=== PATIENT | female | born 1975 | race Caucasian/White ===

== ENCOUNTER 2019-05-08 10:46 | Inpatient (IN) | payer OTHER ==
[2019-05-08] MEDS ORDERED: HEPARIN NA (PORCINE) 5,000 UNITS/ML 1ML VIAL ONE (11:53)
[2019-05-08] MEDS ORDERED: THROMBIN (BOVINE) 5,000 UNIT VIAL TP ONE ×3 (11:53→18:49)
[2019-05-08] MEDS ORDERED: VANCOMYCIN 1,000 MG VIAL (RESTRICTED TO ID ONLY) IVPB ONE ×2 (17:12→18:17)
[2019-05-08] MEDS ORDERED: GELATIN, ABSORBABLE 12-7MM EACH SPONGE TP ONE ×2 (17:13→18:49)
[2019-05-08] MEDS ORDERED: DEXTROSE 50%-WATER 25 GM/50 ML DISP.SYRIN ONE (17:40)
[2019-05-08] MEDS ORDERED: CLINDAMYCIN 600 MG PREMIX BAG IVPB ONE (18:50)
[2019-05-08] MEDS ORDERED: TRANEXAMIC ACID 1000 MG/10 ML VIAL ONE (20:02)
--- NOTE | 2019-05-08 20:45 | PN ---
Progress Note (short form) - Note Progress Note: 43F s/p C3-C4, C4-C5 discectomies; C4 corpectomy; C3, C5 partial corpectomies; C3-C5 anterior cervical decompression and instrumented fusion POD #0. -Admit to ICU x 24 hrs. for airway observation. -Maintain head of bed 30-45 degrees. -Pain medication: per anaesthesia team; NO NSAID's. -DVT PPx: -Mechanical only: BILL's, SCD's. -Post-op Ancef x 2 doses. -Decadron 10mg IV x 1 12/26/2018 at 7am. -f/u AM labs. -Incentive spirometry. -PT/OT/Rehab, OOB. -PWB B/L UE: -No heavy lifting, bending or twisting (5lbs max). -WBAT B/L LE. -d/c Shine catheter at midnight; f/u TOV (8 hours max). -Keep dressing clean & dry. -Advance diet as tolerated. -B/L UE & LE NV checks. -Care per ICU & primary medical hospitalist Dr. Oral Powell. -Discharge planning: f/u [facility] [place] office Wednesday05/19/2018; call for appointment; . Mykel Hendrix MD (Orthopaedic Surgery).
[2019-05-08] MEDS ORDERED: PROMETHAZINE HCL 25 MG/1 ML VIAL IVPUSH PRN (20:49)
[2019-05-08] MEDS ORDERED: ONDANSETRON 4 MG/2 ML VIAL IVPUSH PRN ×2 (20:49→20:51)
--- NOTE | 2019-05-08 20:50 | OP ---
Operative Note - Note: Operative Date: 05/08/19 Pre-Operative Diagnosis: 1. C3-C4, C4-C5 intervertebral disc disorders with radiculopathy. 2. C3-C5 spinal stenosis with myelopathy and neurogenic claudication. Severity of illness: 4 Operation: 1. C3-C4, C4-C5 discectomies. 2. C4 corpectomy. 3. C3, C5 partial corpectomies. 4. C3-C5 anterior cervical decompression and instrumented fusion. 5. Bone autograft. 6. Bone allograft Implants: Cage: Choice Spine [place] 26mm. Plate: Precision Spine Slimplicity 32mm. Screws: 4 x 4x12mm Post-Operative Diagnosis: Same as Pre-op Surgeon: Mykel Hendrix Brand Leader: Tay Hendrix Anesthesiologist/BRIM PLATER: Lj Anderson Anesthesia: General Specimens Removed: C3-C4, C4-C5 discs Estimated Blood Loss (mls): 100 Drains & Tubes with Location: 1 x deep HemoVac Fluid Volume Replaced (mls): 1,300 (Crystalloid) Operative Report Dictated: Yes
[2019-05-08] MEDS ORDERED: oxyCODONE HCL 5 MG TABLET PO PRN (20:51)
[2019-05-08] MEDS ORDERED: INSULIN ASPART 25 UNIT SQ SCH (21:00)
[2019-05-08] MEDS ORDERED: LACTATED RINGERS SOLUTION 1,000 ML IV SCH ×2 (21:00)
--- NOTE | 2019-05-08 21:41 | HP ---
Admitting History and Physical - Admission Chief Complaint: C3-C4, C4-C5 intervertebral disc disorders with radiculopathy, spinal stenosis History Source: Medical Record Limitations to Obtaining History: Clinical Condition (sedated) - Past Medical History Pulmonary: Yes: Asthma, Bronchitis ...LMP: 04/23/19 Endocrine: Yes: Diabetes Mellitus - Smoking History Smoking history: Never smoked - Alcohol/Substance Use Hx Alcohol Use: No Home Medications - Allergies Allergies/Adverse Reactions: Allergies Allergy/AdvReac Type Severity Reaction Status Date / Time Penicillins Allergy Unknown Verified 05/05/19 08:57 - Home Medications Home Medications: Ambulatory Orders Cyanocobalamin [Vitamin B12 -] 1,000 mcg PO DAILY 05/05/19 Ferrous Sulfate [Iron] 325 mg PO DAILY 05/05/19 Insulin Aspart [Novolog] 25 unit SQ AC 05/05/19 Insulin Degludec [Tresiba] 60 unit SQ BID 05/05/19 Rosuvastatin Calcium [Crestor] 20 mg PO HS 05/05/19 Review of Systems Unable to obtain ROS, reason: sedated. unable to assess Physical Examination Vital Signs: Vital Signs Temperature 97. F L 05/08/19 20:42 Pulse Rate 100 H 05/08/19 21:10 Respiratory Rate 14 05/08/19 21:10 Blood Pressure 170/85 05/08/19 21:10 O2 Sat by Pulse Oximetry (%) 100 05/08/19 21:10 Constitutional: Yes: Well Nourished, No Distress, Obese Eyes: Yes: WNL HENT: Yes: WNL Neck: Yes: WNL Cardiovascular: Yes: WNL, Tachycardia Respiratory: Yes: WNL Gastrointestinal: Yes: WNL Renal/: Yes: WNL Musculoskeletal: Yes: Back Pain Extremities: Yes: WNL Edema: No Integumentary: Yes: WNL Wound/Incision: Yes: Clean/Dry, Well Approximated Neurological: Yes: WNL ...Motor Strength: WNL Psychiatric: Yes: WNL Assessment/Plan C3-C4, C4-C5 intervertebral disc disorders with radiculopathy. S/P C3-C4, C4-C5 discectomies, C4 corpectomy, C3, C5 partial corpectomies, C3- C5 anterior cervical decompression and instrumented fusion, Bone autograft, Bone allograft. pain management incentive spirometry. -HTN: change LR to 1/2 NS -GI, DVT prophylaxis -h/o asthma: cont bronchodilators. keep O2>92% -oral diet when more awake -menendez catheter to be removed at midnight for TOV. -Pt is type I diabetic: please make sure she is on long acting insulin on top of RISS -PT/OT/OOB as tolerated -AM labs -will f/u
[2019-05-08] MEDS: SODIUM CHLORIDE 0.45% 1,000 ML IV SCH (21:50)
[2019-05-08] MEDS ORDERED: INSULIN DEGLUDEC 60 UNIT SQ SCH (22:00)
--- NOTE | 2019-05-08 22:39 | CONSULT ---
Consultation: CONSULT SERVICE: ICU Resident HISTORY OF PRESENT ILLNESS: 43yo F with h/o of T1DM, mild intermittent asthma who presents today after cervical surgical procedure. Pt has reported 100cc EBL with uneventful surgery. Pt was noted to have taken her full dose insulin prior to surgery and received D50 x1 due to hypoglycemia on POC glucometry (69). Pt post-operatively had tachycardia and hypertension, however she has been in pain. Otherwise pt has no other complaints and wishes for us to contact her family and update them. REVIEW OF SYSTEMS: As per HPI PHYSICAL EXAMINATION Vital Signs 05/08/19 05/08/19 05/08/19 11:18 11:19 20:42 Temperature 98.1 F 97. F L Pulse Rate 89 100 H Respiratory 18 18 Rate Blood Pressure 115/75 161/80 O2 Sat by Pulse 100 96 Oximetry (%) 05/08/19 05/08/19 05/08/19 20:55 21:10 21:25 Temperature Pulse Rate 94 H 100 H 102 H Respiratory 16 14 16 Rate Blood Pressure 158/78 170/85 179/83 H O2 Sat by Pulse 98 100 99 Oximetry (%) 05/08/19 05/08/19 21:40 22:00 Temperature 98.4 F Pulse Rate 96 H 106 H Respiratory 14 14 Rate Blood Pressure 176/90 H 161/83 O2 Sat by Pulse 99 100 Oximetry (%) GENERAL: NAD, Awake, alert, and fully oriented HEENT: NC/AT, EOMI, RHONDA, MMM, no edema of soft tissues noted NECK: No JVD, hemovac drain noted from R-side of neck, surgical bandage intact without any notable bleeding. LUNGS: CTA bilaterally. No wheezes, and no crackles. No accessory muscle use. Incentive spirometer at bedside HEART: Tachycardic at 92bpm with regular rhythm, normal S1 and S2 without murmur ABDOMEN: Soft, NT/ND, hypoactive bowel sounds, no guarding. EXTREMITIES: 2+ distal pulses throughout, warm, well-perfused. No calf tenderness. No peripheral edema. NEUROLOGICAL: datapower developer II-XII intact. Normal speech. Strength 5/5 in upper and lower extremities, sensation intact throughout. PSYCHIATRIC: Cooperative. Good eye contact. Appropriate mood and affect. SKIN: Warm, dry, no rashes Laboratory Results 05/08/19 05/08/19 05/08/19 11:01 11:01 11:37 POC Glucometer 122 Serum , Qual Negative Blood Type O POSITIVE Antibody Screen Negative 05/08/19 05/08/19 17:37 21:16 POC Glucometer 69 159 Serum , Qual Blood Type Antibody Screen Active Medications Generic Name Dose Route Start Last Admin Trade Name Freq PRN Reason Stop Dose Admin Cyanocobalamin 1,000 mcg 05/09/19 10:00 Vitamin B12 - PO DAILY [facility] Fentanyl 50 mcg 05/08/19 20:49 05/08/19 21:25 Sublimaze Injection - IVPUSH 05/09/19 02:00 50 mcg [id number] PRN Administration PAIN-PACU ORDER X 4 DOSES ONLY Ferrous Sulfate 325 mg 05/09/19 10:00 Feosol - PO DAILY [facility] Clindamycin Phosphate 600 mg in 50 mls @ 100 mls/hr 05/09/19 00:30 Cleocin 600 Mg Premix Ivpb - IVPB 05/09/19 15:29 Q6H-IV HARJINDER Protocol Sodium Chloride 1,000 mls @ 75 mls/hr 05/08/19 22:30 05/08/19 21:50 1/2 Normal Saline IV 0 mls ASDIR [facility] Administration Insulin Detemir 14 units 05/09/19 22:00 Levemir Vial SQ [facility] Ondansetron HCl 4 mg 05/08/19 20:51 Zofran Injection IVPUSH Q6H PRN NAUSEA AND/OR VOMITING Oxycodone HCl 5 mg 05/08/19 20:51 Roxicodone - PO Q4H PRN PAIN LEVEL 1-5 Oxycodone HCl 10 mg 05/08/19 20:51 Roxicodone - PO Q4H PRN PAIN LEVEL 6-10 Promethazine HCl 12.5 mg 05/08/19 20:49 Phenergan Injection - IVPUSH Q6H PRN NAUSEA-FOR RESCUE AFTER 15 MIN Rosuvastatin Calcium 20 mg 05/08/19 22:00 Crestor - PO [facility] ASSESSMENT/PLAN: C3-C4, C4-C5 intervertebral disc disorders with radiculopathy S/p C-spine intervention T1DM Hypertension HLD Mild intermittent asthma --HOB elevated 30-45 degrees --Pain control with oral opiates noted started by anesthesia/surgery --Avoid NSAIDs due to post-operative bleeding --Shine can be removed tomorrow AM with TOV period --PT ordered as pt tolerates --Insulin replacement for long-acting basal insulin given pt's medications nonformulary --TDI 50U and pt has been taking BID dosing of her home insulin [1] --Levemir 12U BID (starting now) --> 50% of TDI divided in 2 doses given T1DM --Will hold off ISS for now while pt is in post-operative period and can reinitiate if pt tolerates food --Pt hypertensive likely 2/2 to pain. Once pain controlled will reassess and if necessary can start an oral low dose ACEi given other comorbid conditions --Continue Albuterol nebs PRN for any wheezing or SOB --Continue Crestor 20mg HS PO FEN: Fluids: 1/2NS@75cc/hr for minimal effect on BP Electrolyte abnormalities: AM labs Nutrition: Advanced to soft diabetic by surgery PPX: DVT - SCDs only GI - Not indicated Dispo: Monitor for airway in ICU overnight References: [1] https://www.aafp.org/afp/1998/1115/p2343.html Visit type - Emergency Visit Emergency Visit: No - New Patient This patient is new to me today: Yes Date on this admission: 05/09/19 - Critical Care Critical Care patient: Yes Total Critical Care Time (in minutes): 35 Critical Care Statement: The care of this patient involved high complexity decision making to prevent further life threatening deterioration of the patient 's condition and/or to evaluate & treat vital organ system(s) failure or risk of failure.
[2019-05-08] MEDS ORDERED: INSULIN (LEVEMIR) 100 UNITS/ML UNITS SQ SCH ×2 (22:40→23:00)
[2019-05-08] MEDS: ROSUVASTATIN CA 20 MG TABLET (FP) PO SCH (23:48)
[2019-05-09] MEDS: CLINDAMYCIN 600MG PREMIX IVPB 600 MG/50 ML BAG IVPB SCH ×4 (00:11→15:09)
[2019-05-09] MEDS: oxyCODONE HCL 5 MG TABLET PO PRN ×3 (01:12→15:24)
[2019-05-09] MEDS: INSULIN SLIDING SCALE (NOVOLOG) 1 VIAL SQ SCH ×4 (05:59→21:26)
[2019-05-09 06:12] LABS: PLATELET COUNT 233 K/MM3 (134-434)
[2019-05-09 06:30] LABS: HEMATOCRIT 33.4 % (32.4-45.2); HEMOGLOBIN 11.4 GM/dL (10.7-15.3); MCH 27.9 pg (25.7-33.7); MEAN PLT VOLUME 7.5 fl (7.5-11.1); RBC 4.08 M/mm3 (3.60-5.2); RDW 13.5 % (11.6-15.6); WHITE BLOOD COUNT 9.6 K/mm3 (4.0-10.0)
[2019-05-09 06:41] LABS: BLOOD UREA NITROGEN 7.4 mg/dL (7-18); CALCIUM 8.2 mg/dL (8.5-10.1); CREATININE 0.6 mg/dL (0.55-1.3); MAGNESIUM 1.8 mg/dL (1.8-2.4); POTASSIUM 3.9 mmol/L (3.5-5.1)
--- NOTE | 2019-05-09 08:29 | PN ---
Physical Exam: SUBJECTIVE: Patient seen and examined at bedside this morning. Patient is POD # 1 s/p C3-C4, C4-C5 discectomies, C4 corpectomy, C3, C5 partial corpectomies, C3- C5 anterior cervical decompression and instrumented fusion. She denies acute complaints today. States that her neck pain is currently 10/10 intensity. She endorses some dysphagia however denies difficulty breathing, shortness of breath , or cough. She has not yet passed bowel movement, or flatus. Patient denies subjective fevers, chills, shortness of breath, chest pain, palpitations, abdominal pain, nausea, vomiting. OBJECTIVE: Vital Signs Period Temp Pulse Resp BP Sys/Lion Pulse Ox Last 24 Hr 97. F-98.4 F 89-120 14-20 115-179/60-90 96-100 GENERAL: The patient is awake, alert, and fully oriented, in no acute distress. HEAD: Normocephalic, atraumatic EYES: PERRL, extraocular movements intact, sclera anicteric, conjunctiva clear. ENT: Oropharynx clear without exudates, moist mucous membranes. NECK: Supple, without lymphadenopathy. Negative stridor auscultated bilaterally. LUNGS: Good inspiratory effort and air entry bilaterally. No wheezes, no crackles auscultated. No accessory muscle use. HEART: Regular rate and rhythm, S1, S2 without murmur, rub or gallop. ABDOMEN: Obese abdomen. Soft, nondistended, nontender to light and deep palpation x4 quadrants. Normoactive bowel sounds. No guarding, no rebound tenderness. EXTREMITIES: 2+ radial, dorsalis pedis pulses bilaterally. Warm, well-perfused. No lower extremity edema bilaterally. NEUROLOGICAL: Cranial nerves II through XII grossly intact. Normal speech. No gross focal deficits. PSYCH: Normal mood, normal affect upon my encounter. SKIN: Warm, dry. Right sided drain at neck noted with sanguinous discharge. Laboratory Results - last 24 hr 05/08/19 05/08/19 05/08/19 11:01 11:01 11:37 WBC RBC Hgb Hct MCV MCH MCHC RDW Plt Count MPV Sodium Potassium Chloride Carbon Dioxide Anion Gap BUN Creatinine Est GFR (CKD-EPI)AfAm Est GFR (CKD-EPI)NonAf POC Glucometer 122 Random Glucose Calcium Magnesium Serum , Qual Negative Blood Type O POSITIVE Antibody Screen Negative 05/08/19 05/08/19 05/09/19 17:37 21:16 05:39 WBC RBC Hgb Hct MCV MCH MCHC RDW Plt Count MPV Sodium Potassium Chloride Carbon Dioxide Anion Gap BUN Creatinine Est GFR (CKD-EPI)AfAm Est GFR (CKD-EPI)NonAf POC Glucometer 69 159 192 Random Glucose Calcium Magnesium Serum , Qual Blood Type Antibody Screen 05/09/19 05/09/19 05:45 05:45 WBC 9.6 RBC 4.08 Hgb 11.4 Hct 33.4 MCV 82.0 MCH 27.9 MCHC 34.0 RDW 13.5 Plt Count 233 MPV 7.5 Sodium 137 Potassium 3.9 Chloride 104 Carbon Dioxide 25 Anion Gap 8 BUN 7.4 Creatinine 0.6 Est GFR (CKD-EPI)AfAm 128.48 Est GFR (CKD-EPI)NonAf 110.86 POC Glucometer Random Glucose 199 H Calcium 8.2 L Magnesium 1.8 Serum , Qual Blood Type Antibody Screen Active Medications Generic Name Dose Route Start Last Admin Trade Name Freq PRN Reason Stop Dose Admin Cyanocobalamin 1,000 mcg 05/09/19 10:00 Vitamin B12 - PO DAILY [facility] Ferrous Sulfate 325 mg 05/09/19 10:00 Feosol - PO DAILY [facility] Clindamycin Phosphate 600 mg in 50 mls @ 100 mls/hr 05/09/19 00:30 05/09/19 04:00 Cleocin 600 Mg Premix Ivpb - IVPB 05/09/19 15:29 100 mls/hr Q6H-IV [facility] Administration Protocol Sodium Chloride 1,000 mls @ 75 mls/hr 05/08/19 22:30 05/08/19 21:50 1/2 Normal Saline IV 0 mls ASDIR [facility] Administration Insulin Aspart 1 vial 05/09/19 07:00 05/09/19 05:59 Novolog Vial Sliding Scale - SQ 2 units ACHS HAR[facility]ER Administration Protocol Insulin Aspart 20 units 05/09/19 12:00 Novolog SQ TIDAC [facility] Insulin Detemir 12 units 05/08/19 23:00 05/08/19 23:48 Levemir Vial SQ 12 units BID@0700,2200 [facility] Administration Ondansetron HCl 4 mg 05/08/19 20:51 Zofran Injection IVPUSH Q6H PRN NAUSEA AND/OR VOMITING Oxycodone HCl 5 mg 05/08/19 20:51 Roxicodone - PO Q4H PRN PAIN LEVEL 1-5 Oxycodone HCl 10 mg 05/08/19 20:51 05/09/19 05:50 Roxicodone - PO 10 mg Q4H PRN Administration PAIN LEVEL 6-10 Promethazine HCl 12.5 mg 05/08/19 20:49 Phenergan Injection - IVPUSH Q6H PRN NAUSEA-FOR RESCUE AFTER 15 MIN Rosuvastatin Calcium 20 mg 05/08/19 22:00 05/08/19 23:48 Crestor - PO 20 mg HS [facility] Administration ASSESSMENT/PLAN: Patient is a 43 year old female with history of type 1 diabetes mellitus, hyperlipidemia, admitted to ICU s/p C3-C4, C4-C5 discectomies, C4 corpectomy, C3 , C5 partial corpectomies, C3-C5 anterior cervical decompression and instrumented fusion Neurologic -Patient is awake, alert, oriented. No acute distress. -Monitor for signs of mental status change. Cardiac History of hyperlipidemia -Rosuvastatin 20mg PO HS Pulmonary -Patient is saturating well on nasal canula. No stridor auscultated bilaterally -Trial of humidified oxygen -Monitor of signs of respiratory distress. Low threshold for further imaging studies. Endocrine History of Type 1 Diabetes -Holding home insulin regimen until patient is tolerating diet. Blood glucose today has been less than 200mg/dL with only 2 units Insulin Novolog administered. -Insulin sliding scale ACHS -Fingerstick blood glucose monitoring ACHS Musculoskeletal -Patient is POD #1 s/p C3-C4, C4-C5 discectomies, C4 corpectomy, C3, C5 partial corpectomies, C3-C5 anterior cervical decompression and instrumented fusion -Acetaminophen 650mg PO Q6 hours for pain 1-3 -Oxycodone 5mg PO Q4H PRN for pain 4-6 -Oxycodone 10mg PO Q4H PRN for pain 6- 10 Infectious disease -Patient received Clindamycin 600mg IV Q6H postoperatively FEN -IV 1/2 normal saline at 75mL/ hour, until patient fully tolerating oral intake -Within normal limits. Follow CMP, replete as necessary. -Soft, diabetic modified diet Prophylaxis -SCDs bilateral lower extremities per orthopedic surgery Disposition -Continue care in ICU Visit type - Emergency Visit Emergency Visit: Yes ED Registration Date: 05/08/19 Care time: The patient presented to the Emergency Department on the above date and was hospitalized for further evaluation of their emergent condition. - New Patient This patient is new to me today: Yes Date on this admission: 05/09/19 - Critical Care Critical Care patient: Yes Total Critical Care Time (in minutes): 35 Critical Care Statement: The care of this patient involved high complexity decision making to prevent further life threatening deterioration of the patient 's condition and/or to evaluate & treat vital organ system(s) failure or risk of failure. - Discharge Referral Referred to [facility] Med P.C.: No
[2019-05-09] MEDS ORDERED: ACETAMINOPHEN 325 MG TABLET (FP) PO ONE (08:30)
[2019-05-09] MEDS ORDERED: PNEUMOC 13-VAL CONJ-DIP CRM/PF 0.5 ML DISP.SYRIN IM ONE (09:46)
[2019-05-09] MEDS: SODIUM CHLORIDE 0.45% 1,000 ML IV SCH ×2 (09:48→22:30)
[2019-05-09] MEDS ORDERED: PNEUMOCOCCAL 23 VACCINE 0.5 ML VIAL IM ONE (10:15)
--- NOTE | 2019-05-09 10:33 | OP ---
DATE OF OPERATION: 05/08/2019 SURGEON: Mykel Hendrix MD MACHINE CLERICAL VERIFIER: Tay Hendrix MD PREOPERATIVE DIAGNOSIS: C4-5 disc prolapse with sequestration, disc migration behind the body of C4 with spondylogenic myelopathy. 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 OPERATION PERFORMED: 1. Discectomy C3-4 and discectomy C4-5. 2. Corpectomy C4. 3. Partial corpectomy C3 and partial corpectomy C5. 4. Insertion of interbody cage with autologous bone graft, C3 to C5. 5. Anterior arthrodesis C3 to C5. 6. Anterior plating C3 to C5. 7. Autologous bone graft harvested from the same wound. ANESTHESIA: General. ANTIBIOTICS GIVEN: Vancomycin 1 g, clindamycin 900 mg (PENICILLIN allergy), Decadron 10 mg given preoperatively. OPERATION IN DETAIL: Patient correctly identified, brought into the operating room, placed supine on the operating room table under general anesthesia. Neuromonitoring baseline readings were taken. Patient was then positioned with a bolster placed behind the scapulae, and the neck extended comfortably. The skin was prepped, draped in a routine manner with Betadine scrub solution, wiped with alcohol, DuraPrep applied. Shoulders were taped down inferiorly as were the breasts. A window drape applied. To repeat, neuromonitoring revealed no problems with any change in neuromonitoring levels. An incision was made just above the lines of Liliana at the root of the head just above the cricothyroid interval. Because of her obesity, this was difficult because of the thick neck configuration. A self-retainer was placed in the subcutaneous layer. The tissues were gently lifted, and the dissection was taken through the subcutaneous fat down to the level of the investing layer of fascia. This was then opened using a Metzenbaum scissors and appropriately dissected out. Hemostasis was achieved with ligating small anterior jugular veins. The dissection was taken laterally to the strap muscles, and with finger dissection and palpation, the anterior vertebral bodies were encountered. An Army-Slater-[place] retractor was placed deep to the esophagus to hold this out of harms way on the left hand side, and the vessels retracted with a Cloward retractor laterally. Lateral fluoroscopic x-ray confirmed the correct positioning of the disc as the needle was placed in the C4-5 disc. Unipolar Bovie helped diathermize and stop all bleeding on the anterior vertebral bodies. The annulus of the C3-4 and 4-5 discs were then transected along the attachment of the annulus to the bone of the anterior aspect of each disc. Under the light microscope, the disc material was retrieved, sent to the lab for confirmation. This left an empty vertebral body at C4-5. Using a linnea-tipped Midas nettie, the end-plate of the disc of the bony bed of C3 and the end-plate of C5 were flattened for the corporate receptionist of the cage ultimately. Using the Matchstick nettie, 2 gutters were cut into the lateral side of the bone bed to bring about easy access to the bone. The bone was rongeured out using a Leksell rongeur more than enough to fill the cage that was proposed. Once the bone had been resected, a 40-mm linnea-tipped nettie was utilized to open up the lateral duong slightly and also nettie down to the actual posterior cortex of the vertebral body. Using 1, 2, and 3 Kerrison upcuts, the entire bone/posterior longitudinal ligament complex was resected. The extruded disc behind the vertebral body was readily seen indicating the correct indications for the surgical intervention, namely that of a corpectomy as opposed to a discectomy and fusion. This enabled us to free the cord completely. Once this had been performed, neuromonitoring reports by the neurology team revealed complete marked improvement of motor-evoked potentials to the biceps, that is the C5 and C6 nerve roots. Appropriately, that is on both sides. No SSEP changes or other motor-evoked changes noted. Once this had been achieved, an appropriate Leiter cage measuring 26 mm was placed into the interbody space only once the 2 bony components were distracted using a [place] distractor. Then, 14-mm pins were placed into the vertebral bodies at C3 and C5. The distraction enabled the seating of the cage to be gently tapped into position. Once the distraction device was removed, ligamentotaxis collapsed the bone onto the sharp pointed spikes of the cage holding the cage solidly into position. The cage had been filled with autologous bone graft. Hemostasis was completely achieved prior to the insertion of the cage. Once the cage was seated, a size 32 mm Simplicity plate with 4 precision 7 x 12 mm screws were inserted. These were inserted into C3 and into C5. Solid fixation achieved. The screws were locked into position with the appropriate locking device of the screw head. The wounds were thoroughly lavaged. Hemostasis was completely achieved, but because of the vascular nature of a corpectomy, I elected to place a drain. A 1/8-inch Hemovac was placed deep into the subfascial plane accordingly. Closures: Platysma and investing layers of fascia 2-0 Vicryl, subcutaneous 3-0 Monocryl with Steri-Strips. Drainage as outlined above. Operation went extremely well, no complications. The postoperative x-rays revealed excellent seating of the implants accordingly. MD BEBE Dunaway/[id number]
[2019-05-09] MEDS: FERROUS SO4 325 MG TABLET (FP) PO SCH (10:40)
[2019-05-09] MEDS: CYANOCOBALAMIN 1,000 MCG TABLET (FP) PO SCH (10:42)
--- NOTE | 2019-05-09 11:27 | PN ---
Teaching Attending Note Name of Resident: Samuel Jeffries ATTENDING PHYSICIAN STATEMENT I saw and evaluated the patient. I reviewed the resident's note and discussed the case with the resident. I agree with the resident's findings and plan as documented. SUBJECTIVE: Patient seen and examined in the ICU. Awake and alert. Reports discomfort and difficulty with swallowing her pills and soft food this AM. Seems to be taking liquids without trouble. No drooling or stasis of secretions. No stridor. No CP or SOB. Intake & Output 05/06/19 05/07/19 05/08/19 05/09/19 23:59 23:59 23:59 23:59 Intake Total 1600 1100 Output Total 600 1005 Balance 1000 95 Weight 200 lb Last Vital Signs Temp Pulse Resp BP Pulse Ox 98.4 F 110 H 20 143/90 98 05/09/19 07:57 05/09/19 07:57 05/09/19 07:57 05/09/19 07:57 05/09/19 09:00 Active Medications Cyanocobalamin (Vitamin B12 -) 1,000 mcg PO DAILY [facility] Last Admin: 05/09/19 10:42 Dose: Not Given Ferrous Sulfate (Feosol -) 325 mg PO DAILY [facility] Last Admin: 05/09/19 10:40 Dose: Not Given Clindamycin Phosphate (Cleocin 600 Mg Premix Ivpb -) 600 mg in 50 mls @ 100 mls /hr IVPB Q6H-IV [facility]; Protocol Stop: 05/09/19 15:29 Last Admin: 05/09/19 08:49 Dose: 100 mls/hr Sodium Chloride (1/2 Normal Saline) 1,000 mls @ 75 mls/hr IV ASDIR [facility] Last Admin: 05/09/19 09:48 Dose: 75 mls/hr Insulin Aspart (Novolog Vial Sliding Scale -) 1 vial SQ ACHS [facility]; Protocol Last Admin: 05/09/19 05:59 Dose: 2 units Insulin Aspart (Novolog) 20 units SQ TIDAC [facility] Insulin Detemir (Levemir Vial) 12 units SQ BID@0700,2200 [facility] Last Admin: 05/08/19 23:48 Dose: 12 units Ondansetron HCl (Zofran Injection) 4 mg IVPUSH Q6H PRN PRN Reason: NAUSEA AND/OR VOMITING Oxycodone HCl (Roxicodone -) 5 mg PO Q4H PRN PRN Reason: PAIN LEVEL 1-5 Oxycodone HCl (Roxicodone -) 10 mg PO Q4H PRN PRN Reason: PAIN LEVEL 6-10 Last Admin: 05/09/19 05:50 Dose: 10 mg Promethazine HCl (Phenergan Injection -) 12.5 mg IVPUSH Q6H PRN PRN Reason: NAUSEA-FOR RESCUE AFTER 15 MIN Rosuvastatin Calcium (Crestor -) 20 mg PO HS [facility] Last Admin: 05/08/19 23:48 Dose: 20 mg GENERAL: The patient is awake, alert, oriented, in no acute distress. HEAD: Normal with no signs of trauma. EYES: PERRL, extraocular movements intact, sclera anicteric, conjunctiva clear. No ptosis. ENT: Ears normal, nares patent, oropharynx clear without exudates, moist mucous membranes. NECK: (+) mild swelling around the surgical site, NO STRIDOR LUNGS: Breath sounds equal, clear to auscultation bilaterally, no wheezes, no crackles, no accessory muscle use. HEART: Regular rate and rhythm, S1, S2 without murmur, rub or gallop. ABDOMEN: Soft, nontender, nondistended, obese, (+) bowel sounds, no guarding, no rebound, no hepatosplenomegaly, no masses. EXTREMITIES: 2+ pulses, warm, well-perfused, no edema. NEUROLOGICAL: Non-focal PSYCH: Normal mood, normal affect. SKIN: Warm, dry, normal turgor, no rashes or lesions noted Laboratory Results - last 24 hr 05/08/19 05/08/19 05/08/19 11:01 11:01 11:37 WBC RBC Hgb Hct MCV MCH MCHC RDW Plt Count MPV Sodium Potassium Chloride Carbon Dioxide Anion Gap BUN Creatinine Est GFR (CKD-EPI)AfAm Est GFR (CKD-EPI)NonAf POC Glucometer 122 Random Glucose Calcium Magnesium Serum , Qual Negative Blood Type O POSITIVE Antibody Screen Negative 05/08/19 05/08/19 05/09/19 17:37 21:16 05:39 WBC RBC Hgb Hct MCV MCH MCHC RDW Plt Count MPV Sodium Potassium Chloride Carbon Dioxide Anion Gap BUN Creatinine Est GFR (CKD-EPI)AfAm Est GFR (CKD-EPI)NonAf POC Glucometer 69 159 192 Random Glucose Calcium Magnesium Serum , Qual Blood Type Antibody Screen 05/09/19 05/09/19 05:45 05:45 WBC 9.6 RBC 4.08 Hgb 11.4 Hct 33.4 MCV 82.0 MCH 27.9 MCHC 34.0 RDW 13.5 Plt Count 233 MPV 7.5 Sodium 137 Potassium 3.9 Chloride 104 Carbon Dioxide 25 Anion Gap 8 BUN 7.4 Creatinine 0.6 Est GFR (CKD-EPI)AfAm 128.48 Est GFR (CKD-EPI)NonAf 110.86 POC Glucometer Random Glucose 199 H Calcium 8.2 L Magnesium 1.8 Serum , Qual Blood Type Antibody Screen ASSESSMENT/PLAN: C3-C4, C4-C5 intervertebral disc disorders with radiculopathy S/P C-spine intervention DM Hypertension HLD Mild intermittent asthma Suspicion of OSAS Trial of Humidified O2 OK to give sips of water and meds and advance as tolerated VTE prophylaxis HOB elevated 30-45 degrees If worsening symptoms inform surgery and can image the airway Should have sleep screen after discharge Glycemic control Incentive Spirometry PT per surgery Pain control BD TX PRN Floor when OK with surgery Dr Troy
[2019-05-09] MEDS: Insulin (LOG) Aspart 100 UNITS/ML VIAL SQ SCH ×2 (12:08→17:50)
--- NOTE | 2019-05-09 13:35 | PN ---
HC Provider Note Provider Note: Anesthesia Post-op Pt s/p GA for anterior cervical discectomy Pt found in bed awake and alert Pt denies n/v, no puritis, no SOB Ambulating well does report urinary retention- for which she has a history of post op VSS otherwise no anesthesia complications Nazario Gleason.
[2019-05-09] MEDS: ACETAMINOPHEN 325 MG TABLET (FP) PO PRN (15:14)
--- NOTE | 2019-05-09 18:42 | PN ---
Progress Note, Physician Chief Complaint: neck pain, difficulty swallowing - Current Medication List Current Medications: Active Medications Acetaminophen (Tylenol -) 650 mg PO Q6H PRN PRN Reason: PAIN LEVEL 1-5 Last Admin: 05/09/19 15:14 Dose: 650 mg Cyanocobalamin (Vitamin B12 -) 1,000 mcg PO DAILY [facility] Last Admin: 05/09/19 10:42 Dose: Not Given Ferrous Sulfate (Feosol -) 325 mg PO DAILY [facility] Last Admin: 05/09/19 10:40 Dose: Not Given Sodium Chloride (1/2 Normal Saline) 1,000 mls @ 75 mls/hr IV ASDIR [facility] Last Admin: 05/09/19 09:48 Dose: 75 mls/hr Insulin Aspart (Novolog Vial Sliding Scale -) 1 vial SQ ACHS [facility]; Protocol Last Admin: 05/09/19 17:50 Dose: Not Given Insulin Aspart (Novolog) 20 units SQ TIDAC [facility] Last Admin: 05/09/19 17:50 Dose: Not Given Ondansetron HCl (Zofran Injection) 4 mg IVPUSH Q6H PRN PRN Reason: NAUSEA AND/OR VOMITING Oxycodone HCl (Roxicodone -) 10 mg PO Q4H PRN PRN Reason: PAIN LEVEL 6-10 Last Admin: 05/09/19 05:50 Dose: 10 mg Oxycodone HCl (Roxicodone -) 5 mg PO Q4H PRN PRN Reason: PAIN LEVEL 4 - 6 Last Admin: 05/09/19 15:24 Dose: 5 mg Promethazine HCl (Phenergan Injection -) 12.5 mg IVPUSH Q6H PRN PRN Reason: NAUSEA-FOR RESCUE AFTER 15 MIN Rosuvastatin Calcium (Crestor -) 20 mg PO [facility] Last Admin: 05/08/19 23:48 Dose: 20 mg - Objective Vital Signs: Vital Signs Temperature 99.4 F 05/09/19 18:02 Pulse Rate 98 H 05/09/19 18:02 Respiratory Rate 16 05/09/19 18:02 Blood Pressure 126/78 05/09/19 18:02 O2 Sat by Pulse Oximetry (%) 98 05/09/19 09:00 Constitutional: Yes: Well Nourished, No Distress, Calm Eyes: Yes: WNL HENT: Yes: Hoarseness, Pharyngeal Erythema Neck: Yes: Tenderness Cardiovascular: Yes: WNL Respiratory: Yes: WNL Gastrointestinal: Yes: WNL Genitourinary: Yes: WNL Musculoskeletal: Yes: WNL Extremities: Yes: WNL Edema: No Peripheral Pulses WNL: No Integumentary: Yes: WNL Wound/Incision: Yes: Clean/Dry, Well Approximated Neurological: Yes: WNL ...Motor Strength: WNL Psychiatric: Yes: WNL Labs: CBC, BMP 05/09/19 05:45 05/09/19 05:45 Assessment/Plan C3-C4, C4-C5 intervertebral disc disorders with radiculopathy. S/P C3-C4, C4-C5 discectomies, C4 corpectomy, C3, C5 partial corpectomies, C3- C5 anterior cervical decompression and instrumented fusion, Bone autograft, Bone allograft. cont pain management incentive spirometry. Pt is C/O dysphagia. aspiration precautions. -GI, DVT prophylaxis -h/o asthma: cont bronchodilators. keep O2>92% -Pt is type I diabetic: please make sure she is on long acting insulin on top of RISS. -PT/OT/OOB as tolerated -assessment and plan discussed with pt and medical staff. -ICU care apprecdiated. -expected DC within 48 hours
[2019-05-09] MEDS: ROSUVASTATIN CA 20 MG TABLET (FP) PO SCH (21:27)
[2019-05-09] MEDS ORDERED: INSULIN (LEVEMIR) 100 UNITS/ML UNITS SQ SCH ×2 (22:00)
[2019-05-10] MEDS: INSULIN SLIDING SCALE (NOVOLOG) 1 VIAL SQ SCH ×4 (06:03→21:46)
[2019-05-10 06:07] LABS: HEMATOCRIT 31.3 % (32.4-45.2); HEMOGLOBIN 10.7 GM/dL (10.7-15.3); MCH 28.1 pg (25.7-33.7); MCHC 34.2 g/dl (32.0-36.0); MEAN CELL VOLUME 82.2 fl (80-96); PLATELET COUNT 205 K/MM3 (134-434); RBC 3.81 M/mm3 (3.60-5.2); RDW 13.4 % (11.6-15.6); WHITE BLOOD COUNT 8.4 K/mm3 (4.0-10.0)
[2019-05-10 06:37] LABS: ALBUMIN 3.2 g/dl (3.4-5.0); BILIRUBIN,TOTAL 0.4 mg/dL (0.2-1); BLOOD UREA NITROGEN 6.7 mg/dL (7-18); CALCIUM 7.8 mg/dL (8.5-10.1); CREATININE 0.5 mg/dL (0.55-1.3); MAGNESIUM 1.8 mg/dL (1.8-2.4); PHOSPHOROUS 3.6 mg/dL (2.5-4.9); POTASSIUM 3.6 mmol/L (3.5-5.1)
--- NOTE | 2019-05-10 07:37 | PN ---
Physical Exam: SUBJECTIVE: Patient seen and examined at bedside this morning. Patient is POD # 2 s/p C3-C4, C4-C5 discectomies, C4 corpectomy, C3, C5 partial corpectomies, C3- C5 anterior cervical decompression and instrumented fusion. Patient continues to endorse difficulty swallowing, however denies any difficulty breathing or shortness of breath. Patient is urinating without dysuria, hematuria. Denies passing flatus or bowel movement. Case discussed with patient sister Jennifer with patient's consent ([phone]) . OBJECTIVE: Vital Signs Period Temp Pulse Resp BP Sys/Lion Pulse Ox Last 24 Hr 98.1 F-99.4 F 82-110 13-20 103-157/54-94 98-98 GENERAL: The patient is awake, alert, and fully oriented, in no acute distress. HEAD: Normocephalic, atraumatic EYES: PERRL, extraocular movements intact, sclera anicteric, conjunctiva clear. ENT: Oropharynx clear without exudates, moist mucous membranes. NECK: Supple, without lymphadenopathy. Negative stridor auscultated bilaterally. LUNGS: Good inspiratory effort and air entry bilaterally. No wheezes, no crackles auscultated. No accessory muscle use. HEART: Regular rate and rhythm, S1, S2 without murmur, rub or gallop. ABDOMEN: Obese abdomen. Soft, nondistended, nontender to light and deep palpation x4 quadrants. Normoactive bowel sounds. No guarding, no rebound tenderness. EXTREMITIES: 2+ radial, dorsalis pedis pulses bilaterally. Warm, well-perfused. No lower extremity edema bilaterally. NEUROLOGICAL: Cranial nerves II through XII grossly intact. Normal speech. No gross focal deficits. PSYCH: Normal mood, normal affect upon my encounter. SKIN: Warm, dry. Right sided drain at neck noted with sanguinous discharge. Laboratory Results - last 24 hr 05/09/19 05/09/19 05/09/19 11:50 12:00 16:15 WBC RBC Hgb Hct MCV MCH MCHC RDW Plt Count MPV Sodium Potassium Chloride Carbon Dioxide Anion Gap BUN Creatinine Est GFR (CKD-EPI)AfAm Est GFR (CKD-EPI)NonAf POC Glucometer 135 128 Random Glucose Calcium Phosphorus Magnesium Total Bilirubin AST ALT Alkaline Phosphatase Total Protein Albumin Blood Type Cancelled 05/09/19 05/10/19 05/10/19 21:25 05:45 05:45 WBC 8.4 RBC 3.81 Hgb 10.7 Hct 31.3 L MCV 82.2 MCH 28.1 MCHC 34.2 RDW 13.4 Plt Count 205 MPV 7.0 L Sodium 140 Potassium 3.6 Chloride 106 Carbon Dioxide 28 Anion Gap 6 L BUN 6.7 L Creatinine 0.5 L Est GFR (CKD-EPI)AfAm 136.42 Est GFR (CKD-EPI)NonAf 117.71 POC Glucometer 119 Random Glucose 130 H Calcium 7.8 L Phosphorus 3.6 Magnesium 1.8 Total Bilirubin 0.4 AST 15 ALT 19 Alkaline Phosphatase 66 Total Protein 6.0 L Albumin 3.2 L Blood Type Active Medications Generic Name Dose Route Start Last Admin Trade Name Freq PRN Reason Stop Dose Admin Acetaminophen 650 mg 05/09/19 15:08 05/09/19 15:14 Tylenol - PO 650 mg Q6H PRN Administration PAIN LEVEL 1-5 Cyanocobalamin 1,000 mcg 05/09/19 10:00 05/09/19 10:42 Vitamin B12 - PO Not Given [facility]ILY [facility] Ferrous Sulfate 325 mg 05/09/19 10:00 05/09/19 10:40 Feosol - PO Not Given [facility]ILY [facility] Sodium Chloride 1,000 mls @ 75 mls/hr 05/08/19 22:30 05/09/19 22:30 1/2 Normal Saline IV Not Given ASD[facility] Insulin Aspart 1 vial 05/09/19 07:00 05/10/19 06:03 Novolog Vial Sliding Scale - SQ Not Given ACHS [facility] Protocol Ondansetron HCl 4 mg 05/08/19 20:51 Zofran Injection IVPUSH Q6H PRN NAUSEA AND/OR VOMITING Oxycodone HCl 10 mg 05/08/19 20:51 05/09/19 05:50 Roxicodone - PO 10 mg Q4H PRN Administration PAIN LEVEL 6-10 Oxycodone HCl 5 mg 05/09/19 15:08 05/09/19 15:24 Roxicodone - PO 5 mg Q4H PRN Administration PAIN LEVEL 4 - 6 Promethazine HCl 12.5 mg 05/08/19 20:49 Phenergan Injection - IVPUSH Q6H PRN NAUSEA-FOR RESCUE AFTER 15 MIN Rosuvastatin Calcium 20 mg 05/08/19 22:00 05/09/19 21:27 Crestor - PO 20 mg HS [facility] Administration ASSESSMENT/PLAN: Patient is a 43 year old female with history of type 1 diabetes mellitus, asthma , hyperlipidemia, admitted to ICU s/p C3-C4, C4-C5 discectomies, C4 corpectomy, C3, C5 partial corpectomies, C3-C5 anterior cervical decompression and instrumented fusion Neurologic -Patient is awake, alert, oriented. No acute distress. -Monitor for signs of mental status change. Cardiac History of hyperlipidemia -Rosuvastatin 20mg PO HS Pulmonary History of asthma -Patient is saturating well on nasal canula. No stridor auscultated bilaterally -Trial of humidified oxygen -Decadron 10mg IV one time dose today, per Dr. Hendrix. -Monitor of signs of respiratory distress. Low threshold for further imaging studies. Endocrine History of Type 1 Diabetes -Holding home insulin regimen until patient is tolerating diet. -Endocrinology consult (Dr. Novak) for basal insulin while hospitalized, and not tolerating PO intake. -Insulin sliding scale ACHS -Fingerstick blood glucose monitoring ACHS Musculoskeletal -Patient is POD #2 s/p C3-C4, C4-C5 discectomies, C4 corpectomy, C3, C5 partial corpectomies, C3-C5 anterior cervical decompression and instrumented fusion -Acetaminophen 650mg PO Q6 hours for pain 1-3 -Oxycodone 5mg PO Q4H PRN for pain 4-6 -Oxycodone 10mg PO Q4H PRN for pain 6- 10 Infectious disease -Patient received Clindamycin 600mg IV Q6H postoperatively FEN -IV 1/2 normal saline at 75mL/ hour, until patient fully tolerating oral intake -Within normal limits. Follow CMP, replete as necessary. -Soft, diabetic modified diet Prophylaxis -SCDs bilateral lower extremities per orthopedic surgery Disposition -Continue care in ICU Case discussed with Dr. Powell. Visit type - Emergency Visit Emergency Visit: Yes ED Registration Date: 05/08/19 Care time: The patient presented to the Emergency Department on the above date and was hospitalized for further evaluation of their emergent condition. - New Patient This patient is new to me today: No - Critical Care Critical Care patient: Yes Total Critical Care Time (in minutes): 35 Critical Care Statement: The care of this patient involved high complexity decision making to prevent further life threatening deterioration of the patient 's condition and/or to evaluate & treat vital organ system(s) failure or risk of failure. - Discharge Referral Referred to [facility] Med [facility].C.: No
[2019-05-10] MEDS ORDERED: PT OWN MED DRAWER 7, Y5N ONE ×2 (09:34→18:20)
[2019-05-10] MEDS: ACETAMINOPHEN 325 MG TABLET (FP) PO PRN ×2 (09:36→15:31)
[2019-05-10] MEDS: FERROUS SO4 325 MG TABLET (FP) PO SCH (09:36)
[2019-05-10] MEDS: CYANOCOBALAMIN 1,000 MCG TABLET (FP) PO SCH (09:36)
[2019-05-10] MEDS: oxyCODONE HCL 5 MG TABLET PO PRN ×2 (09:56→15:28)
[2019-05-10] MEDS ORDERED: DEXAMETHASONE SOD PHOSPHATE 10 MG/1 ML VIAL IVPUSH ONE (11:21)
[2019-05-10] MEDS: PHENOL 177 ML SPRAY BOTTLE MM PRN ×2 (11:51→18:23)
[2019-05-10] MEDS: SODIUM CHLORIDE 0.45% 1,000 ML IV SCH ×2 (11:56→21:34)
--- NOTE | 2019-05-10 12:24 | PN ---
Teaching Attending Note Name of Resident: Samuel Jeffries ATTENDING PHYSICIAN STATEMENT I saw and evaluated the patient. I reviewed the resident's note and discussed the case with the resident. I agree with the resident's findings and plan as documented. SUBJECTIVE: Pt seen and examined in the ICU. Still with odynophagia, dysphagia. Denies shortness of breath. OBJECTIVE: Vital Signs Period Temp Pulse Resp BP Sys/Lion Pulse Ox Last 24 Hr 98.1 F-99.4 F 88-105 13-18 99-157/46-94 98-98 Intake & Output 05/07/19 05/08/19 05/09/19 05/10/19 23:59 23:59 23:59 23:59 Intake Total 1600 2250 1120 Output Total 600 2805 510 Balance 1000 -555 610 Weight 90.718 kg Gen: NAD at rest Neck: no stridor Heart: RRR Lung: decreased breath sounds at the bases Abd: soft, nontender Ext: no edema CBC, BMP 05/10/19 05:45 05/10/19 05:45 Active Medications Acetaminophen (Tylenol -) 650 mg PO Q6H PRN PRN Reason: PAIN LEVEL 1-5 Last Admin: 05/10/19 09:36 Dose: 650 mg Benzocaine/Menthol (Cepacol Lozenge -) 1 each MM PRN PRN PRN Reason: SORE THROAT Cyanocobalamin (Vitamin B12 -) 1,000 mcg PO DAILY [facility] Last Admin: 05/10/19 09:36 Dose: 1,000 mcg Ferrous Sulfate (Feosol -) 325 mg PO DAILY [facility] Last Admin: 05/10/19 09:36 Dose: 325 mg Sodium Chloride (1/2 Normal Saline) 1,000 mls @ 75 mls/hr IV ASDIR [facility] Last Admin: 05/10/19 11:56 Dose: 75 mls/hr Insulin Aspart (Novolog Vial Sliding Scale -) 1 vial SQ ACHS [facility]; Protocol Last Admin: 05/10/19 12:06 Dose: Not Given Ondansetron HCl (Zofran Injection) 4 mg IVPUSH Q6H PRN PRN Reason: NAUSEA AND/OR VOMITING Last Admin: 05/10/19 09:20 Dose: 4 mg Oxycodone HCl (Roxicodone -) 10 mg PO Q4H PRN PRN Reason: PAIN LEVEL 6-10 Last Admin: 05/10/19 09:56 Dose: 10 mg Oxycodone HCl (Roxicodone -) 5 mg PO Q4H PRN PRN Reason: PAIN LEVEL 4 - 6 Last Admin: 05/09/19 15:24 Dose: 5 mg Phenol/Menthol (Chloraseptic -) 1 spray MM Q6HPO PRN PRN Reason: SORE THROAT Last Admin: 05/10/19 11:51 Dose: 1 spray Promethazine HCl (Phenergan Injection -) 12.5 mg IVPUSH Q6H PRN PRN Reason: NAUSEA-FOR RESCUE AFTER 15 MIN Rosuvastatin Calcium (Crestor -) 20 mg PO HS [facility] Last Admin: 05/09/19 21:27 Dose: 20 mg ASSESSMENT AND PLAN: Cervical Spinal Stenosis with Radiculopathy and Neurogenic Claudication s/p C3-C5 ACDF DM HTN Hyperlipidemia Asthma Suspect DEE - pain control - PO as tolerated - IVF - rehab/PT - DVT prophylaxis - can monitor on floor when ok with surgery
--- NOTE | 2019-05-10 14:10 | PN ---
Progress Note, Physician Chief Complaint: neck pain, difficulty swallowing - Current Medication List Current Medications: Active Medications Acetaminophen (Tylenol -) 650 mg PO Q6H PRN PRN Reason: PAIN LEVEL 1-5 Last Admin: 05/10/19 09:36 Dose: 650 mg Benzocaine/Menthol (Cepacol Lozenge -) 1 each MM PRN PRN PRN Reason: SORE THROAT Cyanocobalamin (Vitamin B12 -) 1,000 mcg PO DAILY [facility] Last Admin: 05/10/19 09:36 Dose: 1,000 mcg Ferrous Sulfate (Feosol -) 325 mg PO DAILY [facility] Last Admin: 05/10/19 09:36 Dose: 325 mg Sodium Chloride (1/2 Normal Saline) 1,000 mls @ 75 mls/hr IV ASDIR [facility] Last Admin: 05/10/19 11:56 Dose: 75 mls/hr Insulin Aspart (Novolog Vial Sliding Scale -) 1 vial SQ [facility]; Protocol Last Admin: 05/10/19 12:06 Dose: Not Given Ondansetron HCl (Zofran Injection) 4 mg IVPUSH Q6H PRN PRN Reason: NAUSEA AND/OR VOMITING Last Admin: 05/10/19 09:20 Dose: 4 mg Oxycodone HCl (Roxicodone -) 10 mg PO Q4H PRN PRN Reason: PAIN LEVEL 6-10 Last Admin: 05/10/19 09:56 Dose: 10 mg Oxycodone HCl (Roxicodone -) 5 mg PO Q4H PRN PRN Reason: PAIN LEVEL 4 - 6 Last Admin: 05/09/19 15:24 Dose: 5 mg Phenol/Menthol (Chloraseptic -) 1 spray MM Q6HPO PRN PRN Reason: SORE THROAT Last Admin: 05/10/19 11:51 Dose: 1 spray Promethazine HCl (Phenergan Injection -) 12.5 mg IVPUSH Q6H PRN PRN Reason: NAUSEA-FOR RESCUE AFTER 15 MIN Rosuvastatin Calcium (Crestor -) 20 mg PO [facility] Last Admin: 05/09/19 21:27 Dose: 20 mg - Objective Vital Signs: Vital Signs Temperature 99.1 F 05/10/19 10:00 Pulse Rate 105 H 05/10/19 12:00 Respiratory Rate 15 05/10/19 12:00 Blood Pressure 144/84 06/19/19 12:00 O2 Sat by Pulse Oximetry (%) 98 05/09/19 19:49 Constitutional: Yes: Well Nourished, No Distress, Obese Eyes: Yes: WNL HENT: Yes: WNL Neck: Yes: Tenderness Cardiovascular: Yes: WNL Respiratory: Yes: WNL Gastrointestinal: Yes: WNL Genitourinary: Yes: WNL Musculoskeletal: Yes: WNL Extremities: Yes: WNL Edema: No Peripheral Pulses WNL: Yes ...Motor Strength: WNL Psychiatric: Yes: WNL Labs: CBC, BMP 05/10/19 05:45 05/10/19 05:45 Assessment/Plan C3-C4, C4-C5 intervertebral disc disorders with radiculopathy. S/P C3-C4, C4-C5 discectomies, C4 corpectomy, C3, C5 partial corpectomies, C3- C5 anterior cervical decompression and instrumented fusion, Bone autograft, Bone allograft. cont pain management incentive spirometry. Pt is C/O dysphagia. aspiration precautions. -GI, DVT prophylaxis -h/o asthma: cont bronchodilators. keep O2>92% -Pt is type I diabetic: RISS, endocrine eval requested -PT/OT/OOB as tolerated -assessment and plan discussed with pt and medical staff. blood work and meds reviewed -ICU care apprecdiated. -expected DC within 48 hours
--- NOTE | 2019-05-10 17:14 | PATH ---
Surgical Pathology Report Patient Name: JHONY SINGH [facility]. Rec. #: [id number] /Age/Gender: 1975 (Age: 43) / F Account: [id number] Location: [facility] [employer] Taken: 05/08/2019 Received: 05/09/2019 Reported: 05/10/2019 Physicians: Mykel Hendrix M.D. Specimen(s) Received DISC Clinical History Cervical disc disorder at C4-C5 level with radiculopathy Final Diagnosis DISC, DISCECTOMY: FRAGMENTS OF CARTILAGINOUS TISSUE WITH DEGENERATIVE CHANGE. Electronically Signed Pablo Harris M.D. Gross Description Received in formalin labeled "disc," is a 3.0 x 2.4 x 0.4 cm aggregate of leong fragments of fibrocartilaginous tissue. A pharmaceutical representative portion is submitted in one cassette. /05/09/2019 saudi05/09/2019
[2019-05-10] MEDS: BENZOCAINE/MENTH/CETYLPYRD CL 1 EACH LOZENGE MM PRN (18:23)
[2019-05-10] MEDS: ROSUVASTATIN CA 20 MG TABLET (FP) PO SCH (21:34)
--- NOTE | 2019-05-11 01:04 | CONSULT ---
Consult Consult Specialty:: Endocrine Referred by:: dr.David arpit randhawa Reason for Consultation:: type 1 dm - History of Present Illness Chief Complaint: poor appetite History of Present Illness: 43yo F with h/o of DM type 1, asthma sp cervical discectomy,procedure. Pt has had poor appetite post op and labile blood sugars. she has been on usual treseba and novolog in past and was using 60 iu treseba as well as sliding scale novol with some high 200bs in past . Pt post-operatively had hypoglycemia event with tachycardia and hypertension, she has some surgical sight discomfort . Otherwise no nausea vomiting or diarhea. - Past Medical History Pulmonary: Yes: Asthma, Bronchitis ...LMP: 04/23/19 Endocrine: Yes: Diabetes Mellitus - Alcohol/Substance Use Hx Alcohol Use: No - Smoking History Smoking history: Never smoked Home Medications - Allergies Allergies/Adverse Reactions: Allergies Allergy/AdvReac Type Severity Reaction Status Date / Time Penicillins Allergy Unknown Verified 05/05/19 08:57 - Home Medications Home Medications: Ambulatory Orders Cyanocobalamin [Vitamin B12 -] 1,000 mcg PO DAILY 05/05/19 Ferrous Sulfate [Iron] 325 mg PO DAILY 05/05/19 Insulin Aspart [Novolog] 25 unit SQ AC 05/05/19 Insulin Degludec [Tresiba] 60 unit SQ BID 05/05/19 Rosuvastatin Calcium [Crestor] 20 mg PO HS 05/05/19 Review of Systems - Review of Systems Constitutional: reports: Loss of Appetite, Weakness Eyes: reports: No Symptoms HENT: reports: No Symptoms Neck: reports: Decreased ROM Cardiovascular: reports: No Symptoms Respiratory: reports: Exercise Intolerance, SOB on Exertion Gastrointestinal: reports: Bloating, Nausea Genitourinary: reports: No Symptoms Breasts: reports: No Symptoms Reported Musculoskeletal: reports: No Symptoms Integumentary: reports: No Symptoms Neurological: reports: Weakness Endocrine: reports: Unexplained Weight Gain Physical Exam Vital Signs: Vital Signs Temperature 98.2 F 05/10/19 22:26 Pulse Rate 98 H 05/10/19 22:26 Respiratory Rate 18 05/10/19 22:26 Blood Pressure 120/70 05/10/19 22:26 O2 Sat by Pulse Oximetry (%) 96 05/10/19 20:39 Constitutional: Yes: Anxious Eyes: Yes: EOM Intact HENT: Yes: Normocephalic Cardiovascular: Yes: Regular Rate and Rhythm Respiratory: Yes: CTA Bilaterally Gastrointestinal: Yes: Normal Bowel Sounds ...Rectal Exam: Yes: Deferred Renal/: Yes: WNL Musculoskeletal: Yes: WNL Extremities: Yes: WNL Edema: No Integumentary: Yes: WNL Neurological: Yes: Alert, Oriented Labs: CBC, BMP 05/10/19 05:45 05/10/19 05:45 Assessment/Plan iddm type 1 cervical discectomy postop asthma mild Abnormal Lab Results 05/10/19 05/10/19 05:45 05:45 Hct 31.3 L MPV 7.0 L Anion Gap 6 L BUN 6.7 L Creatinine 0.5 L Random Glucose 130 H Calcium 7.8 L Total Protein 6.0 L Albumin 3.2 L Laboratory Tests 05/10/19 05/10/19 05/10/19 12:01 18:04 21:36 POC Glucometer 134 212 252 Laboratory Tests 05/10/19 05/10/19 05/10/19 05:45 05:56 12:01 Sodium 140 Potassium 3.6 Chloride 106 Carbon Dioxide 28 Anion Gap 6 L BUN 6.7 L Creatinine 0.5 L Est GFR (CKD-EPI)AfAm 136.42 Est GFR (CKD-EPI)NonAf 117.71 POC Glucometer 126 134 plan: bgm qid novolog scale as appetite improves levemir 10 units titrate up as needed ck [id number] will benefit from cgm and insulin pump as outpatient
[2019-05-11] MEDS: INSULIN SLIDING SCALE (NOVOLOG) 1 VIAL SQ SCH ×4 (06:10→21:23)
[2019-05-11] MEDS ORDERED: INSULIN (LEVEMIR) 100 UNITS/ML UNITS SQ SCH (07:00)
--- NOTE | 2019-05-11 07:34 | PN ---
Physical Exam: SUBJECTIVE: Patient seen and examined at bedside this morning. Patient tolerated ice cream overnight, and admits slight improvement with swallowing. She denies shortness of breath, or any difficulty breathing. OBJECTIVE: Vital Signs Period Temp Pulse Resp BP Sys/Lion Pulse Ox Last 24 Hr 97.7 F-99.1 F 88-112 15-20 99-145/46-98 96-99 GENERAL: The patient is awake, alert, and fully oriented, in no acute distress. HEAD: Normocephalic, atraumatic EYES: PERRL, extraocular movements intact, sclera anicteric, conjunctiva clear. ENT: Oropharynx clear without exudates, moist mucous membranes. NECK: Supple, without lymphadenopathy. Negative stridor auscultated bilaterally. LUNGS: Good inspiratory effort and air entry bilaterally. No wheezes, no crackles auscultated. No accessory muscle use. HEART: Regular rate and rhythm, S1, S2 without murmur, rub or gallop. ABDOMEN: Obese abdomen. Soft, nondistended, nontender to light and deep palpation x4 quadrants. Normoactive bowel sounds. No guarding, no rebound tenderness. EXTREMITIES: 2+ radial, dorsalis pedis pulses bilaterally. Warm, well-perfused. No lower extremity edema bilaterally. NEUROLOGICAL: Cranial nerves II through XII grossly intact. Normal speech. No gross focal deficits. PSYCH: Normal mood, normal affect upon my encounter. SKIN: Warm, dry. Right sided drain at neck noted with sanguinous discharge. Laboratory Results - last 24 hr 05/10/19 05/10/19 05/10/19 05:56 12:01 18:04 POC Glucometer 126 134 212 05/10/19 05/11/19 21:36 05:43 POC Glucometer 252 133 Active Medications Generic Name Dose Route Start Last Admin Trade Name Freq PRN Reason Stop Dose Admin Acetaminophen 650 mg 05/09/19 15:08 05/10/19 15:31 Tylenol - PO 650 mg Q6H PRN Administration PAIN LEVEL 1-5 Benzocaine/Menthol 1 each 05/10/19 11:45 05/10/19 18:23 Cepacol Lozenge - MM 1 each PRN PRN Administration SORE THROAT Cyanocobalamin 1,000 mcg 05/09/19 10:00 05/10/19 09:36 Vitamin B12 - PO 1,000 mcg DAILY [facility] Administration Ferrous Sulfate 325 mg 05/09/19 10:00 05/10/19 09:36 Feosol - PO 325 mg DAILY [facility] Administration Insulin Aspart 1 vial 05/09/19 07:00 05/11/19 06:10 Novolog Vial Sliding Scale - SQ Not Given ACHS [facility] Protocol Insulin Detemir 10 units 05/11/19 07:00 05/11/19 06:11 Levemir Vial SQ 10 units AM [facility] Administration Ondansetron HCl 4 mg 05/08/19 20:51 05/10/19 09:20 Zofran Injection IVPUSH 4 mg Q6H PRN Administration NAUSEA AND/OR VOMITING Oxycodone HCl 10 mg 05/08/19 20:51 05/10/19 15:28 Roxicodone - PO 10 mg Q4H PRN Administration PAIN LEVEL 6-10 Oxycodone HCl 5 mg 05/09/19 15:08 05/09/19 15:24 Roxicodone - PO 5 mg Q4H PRN Administration PAIN LEVEL 4 - 6 Phenol/Menthol 1 spray 05/10/19 07:46 05/10/19 18:23 Chloraseptic - MM 1 spray Q6HPO PRN Administration SORE THROAT Promethazine HCl 12.5 mg 05/08/19 20:49 Phenergan Injection - IVPUSH Q6H PRN NAUSEA-FOR RESCUE AFTER 15 MIN Rosuvastatin Calcium 20 mg 05/08/19 22:00 05/10/19 21:34 Crestor - PO 20 mg HS [facility]JINDER Administration ASSESSMENT/PLAN: Patient is a 43 year old female with history of type 1 diabetes mellitus, asthma , hyperlipidemia, admitted to ICU s/p C3-C4, C4-C5 discectomies, C4 corpectomy, C3, C5 partial corpectomies, C3-C5 anterior cervical decompression and instrumented fusion Neurologic -Patient is awake, alert, oriented. No acute distress. -Monitor for signs of mental status change. Cardiac History of hyperlipidemia -Rosuvastatin 20mg PO HS Pulmonary History of asthma -Patient is saturating well on nasal canula. No stridor auscultated bilaterally -Trial of humidified oxygen -Decadron 10mg IV one time dose today -Monitor of signs of respiratory distress. Low threshold for further imaging studies. Endocrine History of Type 1 Diabetes -Holding home insulin regimen until patient is tolerating diet. -Endocrinology consult (Dr. Novak) appreciated. -Insulin Levemir 10 units subq AM -Insulin sliding scale ACHS -Fingerstick blood glucose monitoring ACHS Musculoskeletal -Patient is POD #3 s/p C3-C4, C4-C5 discectomies, C4 corpectomy, C3, C5 partial corpectomies, C3-C5 anterior cervical decompression and instrumented fusion. Speech pathology recommendations appreciated. -Acetaminophen 650mg PO Q6 hours for pain 1-3 -Oxycodone 5mg PO Q4H PRN for pain 4-6 -Oxycodone 10mg PO Q4H PRN for pain 6- 10 Infectious disease -Patient received Clindamycin 600mg IV Q6H postoperatively FEN -IV 1/2 normal saline at 75mL/ hour, until patient fully tolerating oral intake -Within normal limits. Follow CMP, replete as necessary. -Full liquid diet, supplement with Glucerna and yogurt. Prophylaxis -SCDs bilateral lower extremities per orthopedic surgery Disposition -Patient medically stable for transfer to Medical- Surgical floor. Case discussed with Dr. Powell. Visit type - Emergency Visit Emergency Visit: Yes ED Registration Date: 05/08/19 Care time: The patient presented to the Emergency Department on the above date and was hospitalized for further evaluation of their emergent condition. - New Patient This patient is new to me today: No - Critical Care Critical Care patient: Yes Total Critical Care Time (in minutes): 35 Critical Care Statement: The care of this patient involved high complexity decision making to prevent further life threatening deterioration of the patient 's condition and/or to evaluate & treat vital organ system(s) failure or risk of failure. - Discharge Referral Referred to [facility] Med P.C.: No
[2019-05-11] MEDS ORDERED: PT OWN MED DRAWER 7, Y5N ONE ×3 (09:19→21:28)
[2019-05-11] MEDS: oxyCODONE HCL 5 MG TABLET PO PRN ×2 (09:22→16:44)
[2019-05-11] MEDS: FERROUS SO4 325 MG TABLET (FP) PO SCH ×2 (09:23→09:26)
[2019-05-11] MEDS: CYANOCOBALAMIN 1,000 MCG TABLET (FP) PO SCH ×2 (09:24→09:26)
--- NOTE | 2019-05-11 11:11 | PN ---
Teaching Attending Note Name of Resident: Samuel Jeffries ATTENDING PHYSICIAN STATEMENT I saw and evaluated the patient. I reviewed the resident's note and discussed the case with the resident. I agree with the resident's findings and plan as documented. SUBJECTIVE: Patient seen and examined in the ICU. Still with odynophagia and dysphagia but better. Denies shortness of breath. Pain is better controlled. OBJECTIVE: Intake & Output 05/08/19 05/09/19 05/10/19 05/11/19 23:59 23:59 23:59 23:59 Intake Total 1600 2250 2190 1210 Output Total 600 2805 3010 0 Balance 1000 -555 -820 1210 Weight 200 lb 200 lb Last Vital Signs Temp Pulse Resp BP Pulse Ox 98.7 F 94 H 13 142/92 97 05/11/19 10:30 05/11/19 10:30 05/11/19 10:30 05/11/19 10:30 05/11/19 08:29 Active Medications Acetaminophen (Tylenol -) 650 mg PO Q6H PRN PRN Reason: PAIN LEVEL 1-5 Last Admin: 05/10/19 15:31 Dose: 650 mg Benzocaine/Menthol (Cepacol Lozenge -) 1 each MM PRN PRN PRN Reason: SORE THROAT Last Admin: 05/10/19 18:23 Dose: 1 each Cyanocobalamin (Vitamin B12 -) 1,000 mcg PO DAILY [facility] Last Admin: 05/11/19 09:26 Dose: Not Given Ferrous Sulfate (Feosol -) 325 mg PO DAILY [facility] Last Admin: 05/11/19 09:26 Dose: Not Given Insulin Aspart (Novolog Vial Sliding Scale -) 1 vial SQ ACHS [facility]; Protocol Last Admin: 05/11/19 06:10 Dose: Not Given Insulin Detemir (Levemir Vial) 10 units SQ AM [facility] Last Admin: 05/11/19 06:11 Dose: 10 units Ondansetron HCl (Zofran Injection) 4 mg IVPUSH Q6H PRN PRN Reason: NAUSEA AND/OR VOMITING Last Admin: 05/10/19 09:20 Dose: 4 mg Oxycodone HCl (Roxicodone -) 10 mg PO Q4H PRN PRN Reason: PAIN LEVEL 6-10 Last Admin: 06/19/19 15:28 Dose: 10 mg Oxycodone HCl (Roxicodone -) 5 mg PO Q4H PRN PRN Reason: PAIN LEVEL 4 - 6 Last Admin: 05/11/19 09:22 Dose: 5 mg Phenol/Menthol (Chloraseptic -) 1 spray MM Q6HPO PRN PRN Reason: SORE THROAT Last Admin: 05/10/19 18:23 Dose: 1 spray Promethazine HCl (Phenergan Injection -) 12.5 mg IVPUSH Q6H PRN PRN Reason: NAUSEA-FOR RESCUE AFTER 15 MIN Rosuvastatin Calcium (Crestor -) 20 mg PO HS [facility] Last Admin: 05/10/19 21:34 Dose: 20 mg Gen: NAD at rest Neck: no stridor Heart: RRR Lung: decreased breath sounds at the bases Abd: soft, nontender Ext: no edema Laboratory Results - last 24 hr 05/10/19 05/10/19 05/10/19 05:56 12:01 18:04 POC Glucometer 126 134 212 05/10/19 05/11/19 21:36 05:43 POC Glucometer 252 133 ASSESSMENT AND PLAN: Cervical Spinal Stenosis with Radiculopathy and Neurogenic Claudication S/P C3-C5 ACDF DM HTN Hyperlipidemia Asthma History of OSAS: not currently on treatment Grade 3 tonsils - Speech and swallow evaluation - pain control - PO as tolerated - IVF - rehab/PT - DVT prophylaxis - Will need formal re-evaluation of her OSAS after discharge - can monitor on floor when ok with surgery Dr Troy
[2019-05-11] MEDS: BENZOCAINE/MENTH/CETYLPYRD CL 1 EACH LOZENGE MM PRN ×2 (12:00→21:29)
--- NOTE | 2019-05-11 12:25 | PN ---
Progress Note, Physician Chief Complaint: neck pain, difficulty swallowing - Current Medication List Current Medications: Active Medications Acetaminophen (Tylenol -) 650 mg PO Q6H PRN PRN Reason: PAIN LEVEL 1-5 Last Admin: 05/10/19 15:31 Dose: 650 mg Benzocaine/Menthol (Cepacol Lozenge -) 1 each MM PRN PRN PRN Reason: SORE THROAT Last Admin: 05/10/19 18:23 Dose: 1 each Cyanocobalamin (Vitamin B12 -) 1,000 mcg PO DAILY [facility] Last Admin: 05/11/19 09:26 Dose: Not Given Ferrous Sulfate (Feosol -) 325 mg PO DAILY [facility] Last Admin: 05/11/19 09:26 Dose: Not Given Insulin Aspart (Novolog Vial Sliding Scale -) 1 vial SQ [facility]; Protocol Last Admin: 05/11/19 06:10 Dose: Not Given Insulin Detemir (Levemir Vial) 10 units SQ AM [facility] Last Admin: 05/11/19 06:11 Dose: 10 units Ondansetron HCl (Zofran Injection) 4 mg IVPUSH Q6H PRN PRN Reason: NAUSEA AND/OR VOMITING Last Admin: 05/10/19 09:20 Dose: 4 mg Oxycodone HCl (Roxicodone -) 10 mg PO Q4H PRN PRN Reason: PAIN LEVEL 6-10 Last Admin: 05/10/19 15:28 Dose: 10 mg Oxycodone HCl (Roxicodone -) 5 mg PO Q4H PRN PRN Reason: PAIN LEVEL 4 - 6 Last Admin: 05/11/19 09:22 Dose: 5 mg Phenol/Menthol (Chloraseptic -) 1 spray MM Q6HPO PRN PRN Reason: SORE THROAT Last Admin: 05/10/19 18:23 Dose: 1 spray Promethazine HCl (Phenergan Injection -) 12.5 mg IVPUSH Q6H PRN PRN Reason: NAUSEA-FOR RESCUE AFTER 15 MIN Rosuvastatin Calcium (Crestor -) 20 mg PO [facility] Last Admin: 05/10/19 21:34 Dose: 20 mg - Objective Vital Signs: Vital Signs Temperature 98.7 F 05/11/19 10:00 Pulse Rate 94 H 05/11/19 10:00 Respiratory Rate 19 05/11/19 12:00 Blood Pressure 138/78 05/11/19 12:00 O2 Sat by Pulse Oximetry (%) 97 05/11/19 08:29 Constitutional: Yes: Well Nourished, Obese Eyes: Yes: WNL HENT: Yes: WNL Neck: Yes: WNL, Other (neck edematous) Cardiovascular: Yes: WNL Respiratory: Yes: WNL Gastrointestinal: Yes: WNL Genitourinary: Yes: WNL Musculoskeletal: Yes: WNL Extremities: Yes: WNL Edema: No Peripheral Pulses WNL: Yes Integumentary: Yes: WNL Wound/Incision: Yes: Clean/Dry, Well Approximated Neurological: Yes: WNL ...Motor Strength: WNL Psychiatric: Yes: WNL, Alert, Oriented Labs: CBC, BMP 05/10/19 05:45 05/10/19 05:45 Assessment/Plan C3-C4, C4-C5 intervertebral disc disorders with radiculopathy. S/P C3-C4, C4-C5 discectomies, C4 corpectomy, C3, C5 partial corpectomies, C3- C5 anterior cervical decompression and instrumented fusion, Bone autograft, Bone allograft. cont pain management incentive spirometry. Pt is C/O dysphagia. aspiration precautions. ENT eval requested. -GI, DVT prophylaxis -h/o asthma: cont bronchodilators. keep O2>92% -Pt is type I diabetic: RISS, endocrine eval appreciated. on levemir 10 units q-AM -BUN dropping: due to no oral intake. will monitor. -PT/OT/OOB as tolerated -assessment and plan discussed with pt and medical staff. blood work and meds reviewed -ICU care apprecdiated. can be downgraded to regular floor.
[2019-05-11] MEDS ORDERED: DEXAMETHASONE SOD PHOSPHATE 10 MG/1 ML VIAL IVPUSH ONE (12:47)
--- NOTE | 2019-05-11 13:03 | CONSULT ---
Admitting History and Physical - Primary Care Physician PCP: Mykel Hendrix - Admission History of Present Illness: Patient is a 43 year old female with history of type 1 diabetes mellitus, asthma , hyperlipidemia, admitted to ICU s/p C3-C4, C4-C5 discectomies, C4 corpectomy, C3, C5 partial corpectomies, C3-C5 anterior cervical decompression and instrumented fusion. Day 3 s/p sx with persistent Dysphagia/Odynophagia. Soft,Reg diet/thin liquids ordered. Able to tolerate some PO intake, eg soup, tea, ice cream, with pain, responsive cough, phlegm production. Pt given Decadron yesterday. Selected Entries 05/10/19 05/10/19 05/10/19 02:00 06:00 08:15 Breakfast Diet Tolerated Poor Lunch Supper Temperature 98.4 F 98.2 F 05/10/19 05/10/19 05/10/19 10:00 16:00 18:00 Breakfast 25% Diet Tolerated Poor Lunch 25% Supper 25% Temperature 99.1 F 98.9 F 97.7 F 05/10/19 05/10/19 05/11/19 20:00 22:26 02:00 Breakfast Diet Tolerated Poor Lunch Supper 25% Temperature 98.2 F 97.9 F 05/11/19 05/11/19 05/11/19 06:36 08:16 10:00 Breakfast 25% Diet Tolerated Poor Lunch Supper Temperature 98.4 F 98.7 F Laboratory Tests 05/10/19 05:45 WBC 8.4 History Source: Patient, Medical Record Limitations to Obtaining History: No Limitations - Past Medical History Pulmonary: Yes: Asthma, Bronchitis ...LMP: 04/23/19 Endocrine: Yes: Diabetes Mellitus - Smoking History Smoking history: Never smoked - Alcohol/Substance Use Hx Alcohol Use: No History - Admission Reason For Visit: CERVICAL DISC DISORDER AT C4-C5 LEVEL WITH RADICUL - General Mental Status: Alert and Oriented, Awake and Alert, Able to Follow Commands Attention: Intact Ability to Follow Directions: Excellent Head/Neck Control: Impaired (swollen, restricted movement) - Hearing Hearing: Normal Speech Evaluation - Communication Primary Language: CROATIAN - Speech Production Able to Make Needs Known: Yes: WNL Intelligibility: Yes: Mildly Impaired - Speech Characteristics Voice Loudness: Normal Voice Pitch: Yes: Normal Voice Phonatory-based Quality: Yes: Harsh, Dysphonia Speech Clarity: < 100% Articulation: Yes: Precise - Language/Auditory Comprehension Follows: Yes: 2 Stage Simple Commands - Language/Verbal Expression Able to Respond to Simple Queries: Yes: WNL Able to Communicate Wants and Needs: Yes: WNL Functional Communication Status: Yes: WNL - Memory/Perception senior care Memory: Yes: WNL Short Term Memory: Yes: WNL - Swallow Evaluation/Bedside Assessment Current Nutritional Intake: Soft, Thin Liquids Oral Secretions: Yes: WFL (Using Yankower to manage secretions) Dentition: Yes: Adequate, Missing Teeth Facial Symmetry at Rest: Symmetrical Facial Symmetry on Retraction: Symmetrical Facial Movement: Controlled Against Resistance Opening: Normal Against Resistance Closing: Normal Pucker Lips: Normal Smile: Normal Lingual Movement: Normal, Symmetric, Reduced Protrusion (possibly. Base of tongue swelling?) Lingual Speed of Movement: Normal Lingual Movement Strgth Against Opposition: Normal Lingual Movement Characteristics: Normal Laryngeal Elevation: Impaired Laryngeal Movement: Reduced Excursion, Labored,delay initiation, Reduced Velocity Labial Seal: WFL Oral Prep Time: Increased Timing of Swallow: Delayed Odynophagia: Pharyngeal Coughing/Throat Clear: Yes (delayed noted with puree and thin liquids, brief.) Recommendations - Speech Evaluation, Impression/Plan Impression: 43 year old female with history of type 1 diabetes mellitus, asthma , hyperlipidemia, admitted to ICU s/p C3-C4, C4-C5 discectomies, C4 corpectomy, C3, C5 partial corpectomies, C3-C5 anterior cervical decompression and instrumented fusion. I suspect significant swelling day 3 post op, with Pharyngeal Odynophagia,Harsh vocal quality, phlegm production. Reduced laryngeal excursion with suspected stasis of food in pharynx with aspiration risk. - Dysphagia Impressions/Plan Swallowing Skills: Impaired Dysphagia Impressions: Moderate Impairment, Risk of Aspiration, Suspect Aspiration (intermittent? Afebrile. WBC WNL.) Dysphagia Treatment Plan: Small Bites, Chin Tuck/Down (as tolerated), Clear Pocket Food, Trial Feedings, Safe Rate, 1/2 tsp. at a time, OOB for meals, Other (multiple swallows per bite to clear residue/alternate puree with liquid/ NPO if signs of aspirastion including increased phlegm, congestion, respiratory difficulty, fever, congestion.) Recommendations: ENT Consult (pending), Modified Barium Swallow, Other ( Consider Decadron, if not medically contraindicated. Monitor for signs of aspiration. Supervision meal time (choking/aspiration risk until swelling improves and laryngeal function improves)) - Recommendations Diet Consistency: Other (Thinned out mashed potatoes, soup, ice cream, yogurt, No solids at this time.) Liquids: Thin Liquids Supplement: Glucerna
[2019-05-11] MEDS ORDERED: oxyCODONE HCL 5 MG TABLET PO PRN (15:30)
[2019-05-11] MEDS ORDERED: ONDANSETRON 4 MG/2 ML VIAL IVPUSH PRN (15:30)
[2019-05-11] MEDS ORDERED: INSULIN (NOVOLOG) ASPART 100 UNITS/ML 10ML VIAL ONE (20:57)
[2019-05-11] MEDS: ROSUVASTATIN CA 20 MG TABLET (FP) PO SCH (21:21)
[2019-05-11] MEDS: PHENOL 177 ML SPRAY BOTTLE MM PRN (21:29)
[2019-05-12] MEDS ORDERED: PT OWN MED DRAWER 7, Y5N ONE (05:55)
[2019-05-12] MEDS: BENZOCAINE/MENTH/CETYLPYRD CL 1 EACH LOZENGE MM PRN (05:56)
[2019-05-12] MEDS: INSULIN SLIDING SCALE (NOVOLOG) 1 VIAL SQ SCH ×4 (06:04→21:11)
[2019-05-12] MEDS ORDERED: INSULIN (NOVOLOG) ASPART 100 UNITS/ML 10ML VIAL ONE ×2 (06:33→20:39)
[2019-05-12] MEDS ORDERED: INSULIN (LEVEMIR) 100 UNITS/ML UNITS SQ SCH (07:00)
[2019-05-12 07:33] LABS: HEMATOCRIT 33.9 % (32.4-45.2); HEMOGLOBIN 11.8 GM/dL (10.7-15.3); MCH 28.1 pg (25.7-33.7); MCHC 34.7 g/dl (32.0-36.0); MEAN CELL VOLUME 81.1 fl (80-96); PLATELET COUNT 286 K/MM3 (134-434); RBC 4.18 M/mm3 (3.60-5.2); RDW 12.9 % (11.6-15.6); WHITE BLOOD COUNT 7.4 K/mm3 (4.0-10.0)
[2019-05-12 07:57] LABS: ALBUMIN 3.2 g/dl (3.4-5.0); BILIRUBIN,TOTAL 0.5 mg/dL (0.2-1); BLOOD UREA NITROGEN 10.5 mg/dL (7-18); CALCIUM 8.8 mg/dL (8.5-10.1); CREATININE 0.5 mg/dL (0.55-1.3); MAGNESIUM 2.3 mg/dL (1.8-2.4); PHOSPHOROUS 3.2 mg/dL (2.5-4.9); POTASSIUM 3.9 mmol/L (3.5-5.1); TOT PROT 6.5 g/dl (6.4-8.2)
[2019-05-12] MEDS: FERROUS SO4 325 MG TABLET (FP) PO SCH (09:06)
[2019-05-12] MEDS: oxyCODONE HCL 5 MG TABLET PO PRN ×3 (09:08→22:02)
[2019-05-12] MEDS: CYANOCOBALAMIN 1,000 MCG TABLET (FP) PO SCH (09:16)
--- NOTE | 2019-05-12 09:21 | PN ---
Progress Note, Physician Chief Complaint: neck pain, difficulty swallowing - Current Medication List Current Medications: Active Medications Acetaminophen (Tylenol -) 650 mg PO Q6H PRN PRN Reason: PAIN LEVEL 1-5 Benzocaine/Menthol (Cepacol Lozenge -) 1 each MM PRN PRN PRN Reason: SORE THROAT Last Admin: 05/12/19 05:56 Dose: 1 each Cyanocobalamin (Vitamin B12 -) 1,000 mcg PO DAILY [facility] Last Admin: 05/12/19 09:16 Dose: Not Given Ferrous Sulfate (Feosol -) 325 mg PO DAILY [facility] Last Admin: 05/12/19 09:06 Dose: 325 mg Insulin Aspart (Novolog Vial Sliding Scale -) 1 vial SQ ACHS [facility]; Protocol Last Admin: 05/12/19 06:04 Dose: 2 units Insulin Detemir (Levemir Vial) 10 units SQ AM [facility] Last Admin: 05/12/19 06:04 Dose: 10 units Ondansetron HCl (Zofran Injection) 4 mg IVPUSH Q6H PRN PRN Reason: NAUSEA AND/OR VOMITING Oxycodone HCl (Roxicodone -) 10 mg PO Q4H PRN PRN Reason: PAIN LEVEL 6-10 Last Admin: 05/12/19 09:08 Dose: 10 mg Oxycodone HCl (Roxicodone -) 5 mg PO Q4H PRN PRN Reason: PAIN LEVEL 4 - 6 Phenol/Menthol (Chloraseptic -) 1 spray MM Q6HPO PRN PRN Reason: SORE THROAT Last Admin: 05/11/19 21:29 Dose: 1 spray Rosuvastatin Calcium (Crestor -) 20 mg PO [facility] Last Admin: 05/11/19 21:21 Dose: 20 mg - Objective Vital Signs: Vital Signs Temperature 98.6 F 05/12/19 06:45 Pulse Rate 88 05/12/19 06:45 Respiratory Rate 05/12/19 06:45 Blood Pressure 145/74 05/12/19 06:45 O2 Sat by Pulse Oximetry (%) 96 05/11/19 20:19 Constitutional: Yes: Well Nourished, Calm Eyes: Yes: WNL HENT: Yes: WNL Neck: Yes: WNL Cardiovascular: Yes: WNL Respiratory: Yes: WNL Gastrointestinal: Yes: WNL ...Rectal Exam: Yes: WNL Genitourinary: Yes: WNL Musculoskeletal: Yes: WNL Extremities: Yes: WNL Edema: No Peripheral Pulses WNL: Yes Integumentary: Yes: WNL Wound/Incision: Yes: Clean/Dry Neurological: Yes: WNL ...Motor Strength: WNL Psychiatric: Yes: WNL Labs: CBC, BMP 05/12/19 06:30 05/12/19 06:30 Assessment/Plan C3-C4, C4-C5 intervertebral disc disorders with radiculopathy. S/P C3-C4, C4-C5 discectomies, C4 corpectomy, C3, C5 partial corpectomies, C3- C5 anterior cervical decompression and instrumented fusion, Bone autograft, Bone allograft. cont pain management incentive spirometry. Pt is C/O dysphagia. aspiration precautions. ENT eval requested. -swallow eval done. thin liquids. -GI, DVT prophylaxis -h/o asthma: cont bronchodilators. keep O2>92% -Pt is type I diabetic: RISS, endocrine eval appreciated. on levemir 10 units q-AM, RISS. -low BUN: due to reduced oral intake. will monitor. -PT/OT/OOB as tolerated -assessment and plan discussed with pt and medical staff. blood work and meds reviewed -plan to DC home this weekend.
--- NOTE | 2019-05-12 12:22 | PN ---
Progress Note, LEARNING COACH - Note Progress Note: Selected Entries 05/11/19 05/11/19 05/11/19 02:00 06:36 08:16 Breakfast 25% Temperature 97.9 F 98.4 F 05/11/19 05/11/19 05/11/19 10:00 12:00 14:00 Breakfast Temperature 98.7 F 99.3 F 99.3 F 05/11/19 05/11/19 05/12/19 16:00 22:00 06:45 Breakfast Temperature 98.9 F 98.9 F 98.6 F Laboratory Tests 05/12/19 06:30 WBC 7.4 On full fluids, thin liquids. Received Decadron yesterday with good affect. Voice improved. Less swelling and pain. Laryngeal swallow is delayed but fairly brisk. No vocal changes, cough, throat clearing with sips of water.. Repeat swallows generated to clear, likely secondary to pharyngeal stasis but much improved. No congestion reported or observed. Upgrade to Puree/thin liquid,Glucerna. Defer solid at this time until further improvement is noted. Monitor PO tolerance. MBS, if difficulty persists.
[2019-05-12] MEDS: PHENOL 177 ML SPRAY BOTTLE MM PRN (12:51)
--- NOTE | 2019-05-12 14:56 | PN ---
Progress Note, Physician Chief Complaint: sore throat tolerating liquids - Current Medication List Current Medications: Active Medications Acetaminophen (Tylenol -) 650 mg PO Q6H PRN PRN Reason: PAIN LEVEL 1-5 Benzocaine/Menthol (Cepacol Lozenge -) 1 each MM PRN PRN PRN Reason: SORE THROAT Last Admin: 05/12/19 05:56 Dose: 1 each Cyanocobalamin (Vitamin B12 -) 1,000 mcg PO DAILY [facility] Last Admin: 05/12/19 09:16 Dose: Not Given Ferrous Sulfate (Feosol -) 325 mg PO DAILY [facility] Last Admin: 05/12/19 09:06 Dose: 325 mg Insulin Aspart (Novolog Vial Sliding Scale -) 1 vial SQ ACHS [facility]; Protocol Insulin Detemir (Levemir Vial) 20 units SQ AM [facility] Ondansetron HCl (Zofran Injection) 4 mg IVPUSH Q6H PRN PRN Reason: NAUSEA AND/OR VOMITING Oxycodone HCl (Roxicodone -) 10 mg PO Q4H PRN PRN Reason: PAIN LEVEL 6-10 Last Admin: 05/12/19 09:08 Dose: 10 mg Oxycodone HCl (Roxicodone -) 5 mg PO Q4H PRN PRN Reason: PAIN LEVEL 4 - 6 Phenol/Menthol (Chloraseptic -) 1 spray MM Q6HPO PRN PRN Reason: SORE THROAT Last Admin: 05/12/19 12:51 Dose: 1 spray Rosuvastatin Calcium (Crestor -) 20 mg PO [facility] Last Admin: 05/11/19 21:21 Dose: 20 mg - Objective Vital Signs: Vital Signs Temperature 98.3 F 05/12/19 10:00 Pulse Rate 92 H 05/12/19 10:00 Respiratory Rate 18 05/12/19 10:00 Blood Pressure 132/70 05/12/19 10:00 O2 Sat by Pulse Oximetry (%) 99 05/12/19 09:00 Constitutional: Yes: Calm Eyes: Yes: EOM Intact HENT: Yes: Normocephalic Neck: Yes: Trachea Midline Respiratory: Yes: CTA Bilaterally Gastrointestinal: Yes: Normal Bowel Sounds ...Rectal Exam: Yes: Deferred Genitourinary: Yes: WNL Musculoskeletal: Yes: WNL Extremities: Yes: WNL Edema: No Wound/Incision: Yes: Dressing Dry and Intact Neurological: Yes: WNL Labs: CBC, BMP 05/12/19 06:30 05/12/19 06:30 Assessment/Plan diabetes mellitus hyperglycemia cervical discectomy post op Abnormal Lab Results 05/12/19 05/12/19 05/12/19 06:30 06:30 06:30 MPV 7.0 L Creatinine 0.5 L Random Glucose 151 H Hemoglobin A1c % 10.4 H AST 8 L Albumin 3.2 L Laboratory Tests 05/10/19 05/10/19 05/11/19 18:04 21:36 05:43 POC Glucometer 212 252 133 05/11/19 05/11/19 05/11/19 12:01 16:33 21:23 POC Glucometer 140 243 323 05/12/19 05/12/19 05:52 12:06 POC Glucometer 165 164 plan: levemir 20 units am bgm qid novolog scale titration of dose as needed
--- NOTE | 2019-05-12 16:30 | CON.ENT ---
Consult Consult Specialty:: ENT Reason for Consultation:: Trouble swallowing - History of Present Illness Chief Complaint: Hoarseness and trouble swallowing post-op History of Present Illness: Pt POD 4 s/p cervical spine surgery via anterior approach who c/o sore throat, swollen feeling with hoarseness and trouble swallowing. Symptoms slowly improving. Seen by Kandace, notes reviewed. No prior ENT issues - History Source History Provided By: Patient, Medical Record Limitations to Obtaining History: No Limitations - Past Medical History Pulmonary: Yes: Asthma, Bronchitis ...LMP: 04/23/19 Endocrine: Yes: Diabetes Mellitus - Past Surgical History Additional Surgical History: cervical discectomy - Alcohol/Substance Use Hx Alcohol Use: No - Smoking History Smoking history: Never smoked Home Medications - Allergies Allergies/Adverse Reactions: Allergies Allergy/AdvReac Type Severity Reaction Status Date / Time Penicillins Allergy Unknown Verified 05/05/19 08:57 - Home Medications Home Medications: Ambulatory Orders Cyanocobalamin [Vitamin B12 -] 1,000 mcg PO DAILY 05/05/19 Ferrous Sulfate [Iron] 325 mg PO DAILY 05/05/19 Insulin Aspart [Novolog] 25 unit SQ AC 05/05/19 Insulin Degludec [Tresiba] 60 unit SQ BID 05/05/19 Rosuvastatin Calcium [Crestor] 20 mg PO HS 05/05/19 Review of Systems - Review of Systems HENT: reports: Difficult Swallowing, Throat Pain Respiratory: reports: Snoring Physical Exam-ENT Vital Signs: Vital Signs Temperature 98.3 F 05/12/19 10:00 Pulse Rate 92 H 05/12/19 10:00 Respiratory Rate 18 05/12/19 10:00 Blood Pressure 132/70 05/12/19 10:00 O2 Sat by Pulse Oximetry (%) 99 05/12/19 09:00 Constitutional: Yes: Well Nourished, No Distress Head: Yes: WNL Face: Yes: Symmetrical, Normal Facial Strength Eyes: Yes: EOM Intact Nose: Yes: Pale Nasal Passage: Yes: Pale Oral/Pharynx: Yes: Other (2+tonsils, macroglossia, position 3) Outer Ear: Yes: WNL Ear Canal: Yes: Cerumen Tympanic Membrane: Yes: WNL Neck: Yes: Other (wound dressing intact, tenderness to touch, no induration) Respiratory: Yes: WNL Problem List - Problems (1) Dysphagia Assessment/Plan: PT with sore throat, trouble swallowing and hoarseness s/p cervical spine surgery via anterior neck approach. No significant airway pathology, swelling or infection noted. Normal VC mobility. Continue post-op care, ENT treatment as needed Code(s): R13.10 - DYSPHAGIA, UNSPECIFIED Procedure Note Procedure: Fiberoptic Laryngoscopy: After obtaining verbal consent from the patient, topical decongestant/ anesthetic spray intra nasally. Flexible scope passed without difficulty. 1-2+ adenoids noted without obstruction. No significant hypo/laryngeal edema noted. No purulence . Normal VC mobility bilaterally. Pt tolerated procedure well.
[2019-05-12] MEDS: ROSUVASTATIN CA 20 MG TABLET (FP) PO SCH (21:05)
[2019-05-12] MEDS: ACETAMINOPHEN 325 MG TABLET (FP) PO PRN (22:05)
[2019-05-13] MEDS: oxyCODONE HCL 5 MG TABLET PO PRN ×3 (04:09→20:45)
[2019-05-13] MEDS: ACETAMINOPHEN 325 MG TABLET (FP) PO PRN ×2 (04:12→20:58)
[2019-05-13] MEDS: INSULIN SLIDING SCALE (NOVOLOG) 1 VIAL SQ SCH ×5 (06:18→21:05)
[2019-05-13] MEDS: INSULIN (LEVEMIR) 100 UNITS/ML UNITS SQ SCH (06:19)
[2019-05-13] MEDS ORDERED: PT OWN MED DRAWER 7, Y5N ONE (10:22)
[2019-05-13] MEDS: FERROUS SO4 325 MG TABLET (FP) PO SCH (10:50)
[2019-05-13] MEDS: CYANOCOBALAMIN 1,000 MCG TABLET (FP) PO SCH (10:50)
[2019-05-13] MEDS ORDERED: KETOROLAC TROMETHAMINE 15 MG/ML VIAL IVPUSH ONE ×2 (12:00→21:30)
--- NOTE | 2019-05-13 13:34 | PN ---
Progress Note, Physician Chief Complaint: neck pain, difficulty swallowing - Current Medication List Current Medications: Active Medications Acetaminophen (Tylenol -) 650 mg PO Q6H PRN PRN Reason: PAIN LEVEL 1-5 Last Admin: 05/13/19 04:12 Dose: 650 mg Benzocaine/Menthol (Cepacol Lozenge -) 1 each MM PRN PRN PRN Reason: SORE THROAT Last Admin: 05/12/19 05:56 Dose: 1 each Cyanocobalamin (Vitamin B12 -) 1,000 mcg PO DAILY [facility] Last Admin: 05/13/19 10:50 Dose: 1,000 mcg Ferrous Sulfate (Feosol -) 325 mg PO DAILY [facility] Last Admin: 05/13/19 10:50 Dose: 325 mg Insulin Aspart (Novolog Vial Sliding Scale -) 1 vial SQ [facility]; Protocol Last Admin: 05/13/19 12:39 Dose: 4 units Insulin Detemir (Levemir Vial) 20 units SQ AM [facility] Last Admin: 05/13/19 06:19 Dose: 20 units Ondansetron HCl (Zofran Injection) 4 mg IVPUSH Q6H PRN PRN Reason: NAUSEA AND/OR VOMITING Oxycodone HCl (Roxicodone -) 10 mg PO Q4H PRN PRN Reason: PAIN LEVEL 6-10 Last Admin: 05/13/19 10:48 Dose: 10 mg Oxycodone HCl (Roxicodone -) 5 mg PO Q4H PRN PRN Reason: PAIN LEVEL 4 - 6 Phenol/Menthol (Chloraseptic -) 1 spray MM Q6HPO PRN PRN Reason: SORE THROAT Last Admin: 05/12/19 12:51 Dose: 1 spray Rosuvastatin Calcium (Crestor -) 20 mg PO [facility] Last Admin: 05/12/19 21:05 Dose: 20 mg - Objective Vital Signs: Vital Signs Temperature 98.1 F 05/13/19 07:07 Pulse Rate 96 H 05/13/19 07:07 Respiratory Rate 20 05/13/19 07:07 Blood Pressure 129/66 05/13/19 07:07 O2 Sat by Pulse Oximetry (%) 96 05/12/19 21:00 Constitutional: Yes: Well Nourished, No Distress, Calm Eyes: Yes: WNL HENT: Yes: WNL Neck: Yes: Decreased ROM, Tenderness Cardiovascular: Yes: WNL Respiratory: Yes: WNL Gastrointestinal: Yes: WNL Genitourinary: Yes: WNL Musculoskeletal: Yes: WNL Extremities: Yes: WNL Edema: No Peripheral Pulses WNL: Yes Integumentary: Yes: WNL Wound/Incision: Yes: Clean/Dry, Well Approximated Neurological: Yes: WNL ...Motor Strength: WNL Psychiatric: Yes: WNL Labs: CBC, BMP 05/12/19 06:30 05/12/19 06:30 Assessment/Plan C3-C4, C4-C5 intervertebral disc disorders with radiculopathy. S/P C3-C4, C4-C5 discectomies, C4 corpectomy, C3, C5 partial corpectomies, C3- C5 anterior cervical decompression and instrumented fusion, Bone autograft, Bone allograft. cont pain management incentive spirometry. Pt is C/O dysphagia. aspiration precautions. ENT eval appreciated. S/P laryngoscopy. no acute intervention. -swallow eval done. advance diet as tolerated -GI, DVT prophylaxis -h/o asthma: cont bronchodilators. keep O2>92% -Pt is type I diabetic: RISS, endocrine eval appreciated. on levemir 20 units q-AM, RISS. -low BUN: due to reduced oral intake. will monitor. -PT/OT/OOB as tolerated -assessment and plan discussed with pt and medical staff. blood work and meds reviewed -plan to DC home this vs Wednesday
--- NOTE | 2019-05-13 17:42 | PN ---
Progress Note (short form) - Note Progress Note: POD#5 Neck pain improved Neuro All at baseline Fully intact Voice Better but still raspy Neck No swelling Swallowing Improved No aspiration Wound Dry PLAN PT Mobilize D/C home Pain mx Follow in office
[2019-05-13] MEDS: ROSUVASTATIN CA 20 MG TABLET (FP) PO SCH (21:00)
[2019-05-13] MEDS ORDERED: CYCLOBENZAPRINE HCL 10 MG TABLET (FP) PO ONE (21:30)
[2019-05-13] MEDS: BENZOCAINE/MENTH/CETYLPYRD CL 1 EACH LOZENGE MM PRN (22:49)
[2019-05-14] MEDS: oxyCODONE HCL 5 MG TABLET PO PRN ×3 (03:13→20:25)
[2019-05-14] MEDS: ACETAMINOPHEN 325 MG TABLET (FP) PO PRN ×2 (06:15→20:26)
[2019-05-14] MEDS: INSULIN (LEVEMIR) 100 UNITS/ML UNITS SQ SCH (06:21)
[2019-05-14] MEDS: INSULIN SLIDING SCALE (NOVOLOG) 1 VIAL SQ SCH ×4 (07:14→23:32)
[2019-05-14] MEDS: FERROUS SO4 325 MG TABLET (FP) PO SCH (10:02)
[2019-05-14] MEDS: CYANOCOBALAMIN 1,000 MCG TABLET (FP) PO SCH (10:02)
[2019-05-14] MEDS ORDERED: KETOROLAC TROMETHAMINE 15 MG/ML VIAL IVPUSH ONE (10:30)
[2019-05-14] MEDS ORDERED: CYCLOBENZAPRINE HCL 10 MG TABLET (FP) PO ONE (10:30)
--- NOTE | 2019-05-14 12:40 | PN ---
Progress Note, Physician Chief Complaint: neck pain, difficulty swallowing - Current Medication List Current Medications: Active Medications Acetaminophen (Tylenol -) 650 mg PO Q6H PRN PRN Reason: PAIN LEVEL 1-5 Last Admin: 05/14/19 06:15 Dose: 650 mg Benzocaine/Menthol (Cepacol Lozenge -) 1 each MM PRN PRN PRN Reason: SORE THROAT Last Admin: 05/13/19 22:49 Dose: 1 each Cyanocobalamin (Vitamin B12 -) 1,000 mcg PO DAILY [facility] Last Admin: 05/14/19 10:02 Dose: 1,000 mcg Ferrous Sulfate (Feosol -) 325 mg PO DAILY [facility] Last Admin: 05/14/19 10:02 Dose: 325 mg Insulin Aspart (Novolog Vial Sliding Scale -) 1 vial SQ [facility]; Protocol Last Admin: 05/14/19 07:14 Dose: Not Given Insulin Detemir (Levemir Vial) 20 units SQ AM [facility] Last Admin: 05/14/19 06:21 Dose: 20 units Ondansetron HCl (Zofran Injection) 4 mg IVPUSH Q6H PRN PRN Reason: NAUSEA AND/OR VOMITING Oxycodone HCl (Roxicodone -) 10 mg PO Q4H PRN PRN Reason: PAIN LEVEL 6-10 Last Admin: 05/14/19 10:35 Dose: 10 mg Oxycodone HCl (Roxicodone -) 5 mg PO Q4H PRN PRN Reason: PAIN LEVEL 4 - 6 Phenol/Menthol (Chloraseptic -) 1 spray MM Q6HPO PRN PRN Reason: SORE THROAT Last Admin: 05/12/19 12:51 Dose: 1 spray Rosuvastatin Calcium (Crestor -) 20 mg PO [facility] Last Admin: 05/13/19 21:00 Dose: 20 mg - Objective Vital Signs: Vital Signs Temperature 98.2 F 05/14/19 07:05 Pulse Rate 108 H 05/14/19 07:05 Respiratory Rate 20 05/14/19 07:05 Blood Pressure 159/92 05/14/19 07:05 O2 Sat by Pulse Oximetry (%) 96 05/12/19 21:00 Constitutional: Yes: Well Nourished, No Distress, Calm, Obese Eyes: Yes: WNL HENT: Yes: WNL Neck: Yes: WNL Cardiovascular: Yes: WNL Respiratory: Yes: WNL Gastrointestinal: Yes: WNL Genitourinary: Yes: WNL Musculoskeletal: Yes: WNL Extremities: Yes: WNL Edema: No Peripheral Pulses WNL: Yes Integumentary: Yes: WNL Wound/Incision: Yes: Clean/Dry, Well Approximated Neurological: Yes: WNL ...Motor Strength: WNL Psychiatric: Yes: WNL Labs: CBC, BMP 05/12/19 06:30 05/12/19 06:30 Assessment/Plan C3-C4, C4-C5 intervertebral disc disorders with radiculopathy. S/P C3-C4, C4-C5 discectomies, C4 corpectomy, C3, C5 partial corpectomies, C3- C5 anterior cervical decompression and instrumented fusion, Bone autograft, Bone allograft. cont pain management incentive spirometry. Pt is C/O dysphagia. aspiration precautions. ENT eval appreciated. S/P laryngoscopy. no acute intervention. improved today. -GI, DVT prophylaxis -h/o asthma: cont bronchodilators. keep O2>92% -Pt is type I diabetic: RISS, endocrine eval appreciated. on levemir 20 units q-AM, RISS. -low BUN: due to reduced oral intake. will monitor. -PT/OT/OOB as tolerated -assessment and plan discussed with pt and medical staff. blood work and meds reviewed -plan to DC home tomorrow.
[2019-05-14] MEDS: ROSUVASTATIN CA 20 MG TABLET (FP) PO SCH (23:25)
[2019-05-14] MEDS: BENZOCAINE/MENTH/CETYLPYRD CL 1 EACH LOZENGE MM PRN (23:36)
[2019-05-15] MEDS ORDERED: KETOROLAC TROMETHAMINE 15 MG/ML VIAL IVPUSH ONE (01:30)
[2019-05-15] MEDS ORDERED: CYCLOBENZAPRINE HCL 10 MG TABLET (FP) PO ONE (01:30)
[2019-05-15] MEDS: ACETAMINOPHEN 325 MG TABLET (FP) PO PRN ×3 (04:00→15:59)
[2019-05-15] MEDS: oxyCODONE HCL 5 MG TABLET PO PRN ×5 (04:00→20:17)
[2019-05-15] MEDS: INSULIN SLIDING SCALE (NOVOLOG) 1 VIAL SQ SCH ×4 (06:32→23:05)
[2019-05-15] MEDS: INSULIN (LEVEMIR) 100 UNITS/ML UNITS SQ SCH (06:36)
[2019-05-15 07:31] LABS: BASO % 0.5 % (0-2.0); EOS % 1.2 % (0-4.5); HEMATOCRIT 31.4 % (32.4-45.2); HEMOGLOBIN 10.9 GM/dL (10.7-15.3); LYMPH % 34.8 % (8-40); MCH 27.8 pg (25.7-33.7); MCHC 34.6 g/dl (32.0-36.0); MEAN CELL VOLUME 80.2 fl (80-96); MEAN PLT VOLUME 7.1 fl (7.5-11.1); MONO % 8.6 % (3.8-10.2); NEUT % 54.9 % (42.8-82.8); PLATELET COUNT 266 K/MM3 (134-434); RBC 3.91 M/mm3 (3.60-5.2); RDW 12.6 % (11.6-15.6); WHITE BLOOD COUNT 5.5 K/mm3 (4.0-10.0)
[2019-05-15 07:47] LABS: BLOOD UREA NITROGEN 10.4 mg/dL (7-18); CALCIUM 8.8 mg/dL (8.5-10.1); CREATININE 0.5 mg/dL (0.55-1.3); POTASSIUM 3.6 mmol/L (3.5-5.1)
[2019-05-15] MEDS: FERROUS SO4 325 MG TABLET (FP) PO SCH (10:13)
[2019-05-15] MEDS: CYANOCOBALAMIN 1,000 MCG TABLET (FP) PO SCH (10:13)
--- NOTE | 2019-05-15 12:41 | PN ---
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 Pt tolerated full fluids. Pt requesting diet upgrade. Overtly tolerated trials of bread, with liquid wash down. Reg, DM diet ordered by PMD. Monitor tolerance. MBS, if difficulty persists.
--- NOTE | 2019-05-15 12:45 | PN ---
Progress Note, Physician Chief Complaint: neck pain, difficulty swallowing - Current Medication List Current Medications: Active Medications Acetaminophen (Tylenol -) 650 mg PO Q6H PRN PRN Reason: PAIN LEVEL 1-5 Last Admin: 05/15/19 10:12 Dose: 650 mg Benzocaine/Menthol (Cepacol Lozenge -) 1 each MM PRN PRN PRN Reason: SORE THROAT Last Admin: 05/14/19 23:36 Dose: 1 each Cyanocobalamin (Vitamin B12 -) 1,000 mcg PO DAILY [facility] Last Admin: 05/15/19 10:13 Dose: 1,000 mcg Ferrous Sulfate (Feosol -) 325 mg PO DAILY [facility] Last Admin: 05/15/19 10:13 Dose: 325 mg Insulin Aspart (Novolog Vial Sliding Scale -) 1 vial SQ [facility]; Protocol Last Admin: 05/15/19 11:14 Dose: Not Given Insulin Detemir (Levemir Vial) 20 units SQ AM [facility] Last Admin: 05/15/19 06:36 Dose: 20 units Ondansetron HCl (Zofran Injection) 4 mg IVPUSH Q6H PRN PRN Reason: NAUSEA AND/OR VOMITING Oxycodone HCl (Roxicodone -) 10 mg PO Q4H PRN PRN Reason: PAIN LEVEL 6-10 Last Admin: 05/15/19 11:58 Dose: 10 mg Phenol/Menthol (Chloraseptic -) 1 spray MM Q6HPO PRN PRN Reason: SORE THROAT Last Admin: 05/12/19 12:51 Dose: 1 spray Rosuvastatin Calcium (Crestor -) 20 mg PO [facility] Last Admin: 05/14/19 23:25 Dose: 20 mg - Objective Vital Signs: Vital Signs Temperature 98.3 F 05/15/19 07:09 Pulse Rate 98 H 05/15/19 07:09 Respiratory Rate 20 05/15/19 07:09 Blood Pressure 113/63 05/15/19 07:09 O2 Sat by Pulse Oximetry (%) 98 05/14/19 21:00 Constitutional: Yes: Well Nourished, Anxious, Obese Eyes: Yes: WNL HENT: Yes: WNL Neck: Yes: WNL Cardiovascular: Yes: WNL Respiratory: Yes: WNL Gastrointestinal: Yes: WNL Genitourinary: Yes: WNL Musculoskeletal: Yes: WNL Extremities: Yes: WNL Integumentary: Yes: WNL Wound/Incision: Yes: Clean/Dry, Well Approximated Neurological: Yes: WNL ...Motor Strength: WNL Psychiatric: Yes: Agitated Labs: CBC, BMP 05/15/19 06:24 05/15/19 06:24 Assessment/Plan C3-C4, C4-C5 intervertebral disc disorders with radiculopathy. S/P C3-C4, C4-C5 discectomies, C4 corpectomy, C3, C5 partial corpectomies, C3- C5 anterior cervical decompression and instrumented fusion, Bone autograft, Bone allograft. cont pain management incentive spirometry. diet advanced to regular diabetic diet. -GI, DVT prophylaxis -h/o asthma: cont bronchodilators. keep O2>92% -Pt is type I diabetic: RISS, endocrine eval appreciated. on levemir 20 units q-AM, RISS. pt says she "likes to manage my diabetes by myself". -low BUN: due to reduced oral intake. will monitor. -PT/OT/OOB as tolerated -assessment and plan discussed with pt and medical staff. blood work and meds reviewed -DC planning
[2019-05-15] MEDS ORDERED: PT OWN MED DRAWER 7, Y5N ONE ×6 (14:01→20:15)
[2019-05-15] MEDS: CYCLOBENZAPRINE HCL 5 MG TABLET PO SCH ×2 (15:31→21:43)
[2019-05-15] MEDS ORDERED: INSULIN (NOVOLOG) ASPART 100 UNITS/ML 10ML VIAL ONE (16:07)
[2019-05-15 16:12] VITALS: BMI 35.7
[2019-05-15] MEDS: ROSUVASTATIN CA 20 MG TABLET (FP) PO SCH (21:43)
[2019-05-15] MEDS ORDERED: diazePAM 5 MG TABLET PO ONE (23:15)
[2019-05-15] MEDS: CYCLOBENZAPRINE HCL 10 MG TABLET (FP) PO PRN (23:19)
[2019-05-16] MEDS: oxyCODONE HCL 5 MG TABLET PO PRN ×3 (00:07→09:01)
[2019-05-16] MEDS: ACETAMINOPHEN 325 MG TABLET (FP) PO PRN ×2 (04:25→12:13)
[2019-05-16] MEDS: INSULIN (LEVEMIR) 100 UNITS/ML UNITS SQ SCH (06:02)
[2019-05-16] MEDS: BENZOCAINE/MENTH/CETYLPYRD CL 1 EACH LOZENGE MM PRN ×2 (06:02→13:39)
[2019-05-16] MEDS: INSULIN SLIDING SCALE (NOVOLOG) 1 VIAL SQ SCH ×2 (06:03→11:54)
[2019-05-16 06:21] VITALS: BP 108/54; PULSE 98; TEMP 98
[2019-05-16] MEDS: CYANOCOBALAMIN 1,000 MCG TABLET (FP) PO SCH (10:10)
[2019-05-16] MEDS: FERROUS SO4 325 MG TABLET (FP) PO SCH (10:10)
[2019-05-16] MEDS: CYCLOBENZAPRINE HCL 10 MG TABLET (FP) PO PRN (10:36)
[2019-05-16] MEDS ORDERED: INSULIN (NOVOLOG) ASPART 100 UNITS/ML 10ML VIAL ONE (11:53)
--- NOTE | 2019-05-16 12:55 | PN ---
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 No coughing. Mild hangup reported, washes it down with water. c/o neck pain, requesting more pain medication.
--- NOTE | 2019-05-16 13:59 | DS ---
Physical Examination Vital Signs: Vital Signs Temperature 98 F 05/16/19 06:00 Pulse Rate 98 H 05/16/19 06:00 Respiratory Rate 20 05/16/19 06:00 Blood Pressure 108/54 L 05/16/19 06:00 O2 Sat by Pulse Oximetry (%) 98 05/15/19 21:00 Constitutional: Yes: Well Nourished, Anxious Gastrointestinal: Yes: WNL Renal/: Yes: WNL Musculoskeletal: Yes: Back Pain Extremities: Yes: WNL Edema: No Peripheral Pulses WNL: Yes Integumentary: Yes: WNL Wound/Incision: Yes: Clean/Dry, Well Approximated, Dressing Dry and Intact Neurological: Yes: WNL ...Motor Strength: WNL Psychiatric: Yes: Agitated Labs: CBC, BMP 05/15/19 06:24 05/15/19 06:24 Discharge Summary Reason For Visit: CERVICAL DISC DISORDER AT C4-C5 LEVEL WITH RADICUL Current Active Problems Dysphagia (Acute) Condition: Good - Instructions Diet, Activity, Other Instructions: diabetic diet Disposition: HOME - Home Medications Comprehensive Discharge Medication List: Ambulatory Orders Cyanocobalamin [Vitamin B12 -] 1,000 mcg PO DAILY 05/05/19 Ferrous Sulfate [Iron] 325 mg PO DAILY 05/05/19 Insulin Aspart [Novolog] 25 unit SQ AC 05/05/19 Insulin Degludec [Tresiba] 60 unit SQ BID 05/05/19 Rosuvastatin Calcium [Crestor] 20 mg PO HS 05/05/19 Cyclobenzaprine HCl 10 mg PO TID 6 Days #18 tablet 05/16/19 Insulin (Levemir) [Levemir Vial] 20 units SQ AM units 05/16/19 Insulin Sliding Scale [Novolog Vial Sliding Scale -] 1 vial SQ [facility] units 05/16 oxyCODONE HCL [Roxicodone -] 10 mg PO Q4H PRN 3 Days #18 tablet MDD 60 mg
== END 2019-05-16 15:48 | disposition home or self-care (01) | DRG 321 ==
LOC: JSAMEDAYSX 10:46 → JICU 21:10 → J8W 05-11 16:26
PROVIDERS: ADMIT Orthopaedic Surgery Orthopaedic Surgery of the Spine; ATTEND Orthopaedic Surgery Orthopaedic Surgery of the Spine
PROC: 0RB30ZZ Excision of Cervical Vertebral Disc, Open Approach (ICD-10-PCS; 2019-05-08)
PROC: 01N10ZZ Release Cervical Nerve, Open Approach (ICD-10-PCS; 2019-05-08)
PROC: 4A11X4G Monitoring of Peripheral Nervous Electrical Activity, Intraoperative, External Approach (ICD-10-PCS; 2019-05-08)
PROC: 0RG20A0 Fusion of 2 or more Cervical Vertebral Joints with Interbody Fusion Device, Anterior Approach, Anterior Column, Open Approach (ICD-10-PCS; principal; 2019-05-08 12:00)
PROC: 0CJS8ZZ Inspection of Larynx, Via Natural or Artificial Opening Endoscopic (ICD-10-PCS; 2019-05-12)
DX: M50.021 Cervical disc disorder at C4-C5 level with myelopathy (principal); M48.02 Spinal stenosis, cervical region; R13.10 Dysphagia, unspecified; E66.9 Obesity, unspecified; Z68.35 Body mass index [BMI] 35.0-35.9, adult; E10.65 Type 1 diabetes mellitus with hyperglycemia; E78.5 Hyperlipidemia, unspecified; I10 Essential (primary) hypertension; J45.20 Mild intermittent asthma, uncomplicated
CPT/HCPCS: 36415; 76000-TC-FY; 80048; 80053; 82962; 83036; 83735; 84100; 84703; 85025; 85027; 86850; 86900; 86901; 88304-TC; 90732; 94010; 94760; 97116-GP; 97162-GP; G0009; J1100; J1644